=== PATIENT | male | born 1950 | race Caucasian/White ===

== ENCOUNTER → 2017-01-01 | Outpatient (CLI) | payer OTHER ==
[~2017-01-01] MED LIST: ACET-1311 PO; ATV1 PO; CGN5X PO; CHOL2000 PO; DIVA125C PO; ESCI1TAB10 PO; FLM4 PO; HALO2TAB PO; HALO5TAB PO; LORA-741 PO; PRMT10 PO; SENN-91 PO
[2017-01-01 08:57] LABS: BASO % 0.7 %; BASO ABS # 0.03 K/uL (0-0.2); COMPLETE YES; EOS % 4.4 %; HEMATOCRIT 39.5 % (42-52); IG% 0.2 %; LYMPH % 39.1 %; LYMPH ABS # 1.77 K/uL (1.2-3.4); MEAN CORPUSCULAR HEMOGLOBIN 32.5 pg (25-34); MEAN CORPUSCULAR HGB CONC 34.2 g/dl (32-36); MEAN PLATELET VOLUME 11.2 fL (7.4-10.4); MONO % 9.1 %; NEUT % 46.5 %; PLATELET COUNT 204 K/uL (130-400); RED BLOOD COUNT 4.16 M/uL (4.7-6.1); WHITE BLOOD COUNT 4.53 K/uL (4.8-10.8)
[2017-01-01 09:04] LABS: ALT/SGPT 18 U/L (12-78); AST/SGOT 11 U/L (15-37); BLOOD UREA NITROGEN 16 mg/dl (7-18); BUN/CREATININE RATIO 18.1 (10-20); CALCIUM 8.7 mg/dl (8.5-10.1); CARBON DIOXIDE 29 mmol/L (21-32); CHLORIDE 107 mmol/L (98-107); CREATININE 0.89 mg/dl (0.60-1.40); GLUCOSE 81 mg/dl (70-99); MAGNESIUM 2.1 mg/dl (1.8-2.4); POTASSIUM 4.7 mmol/L (3.5-5.1); SODIUM 142 mmol/L (136-145)
[2017-01-01 09:07] LABS: ALB/GLOB RATIO 1.2 (0.9-2); ALKALINE PHOSPHATASE 34 U/L (45-117)
== END | disposition home or self-care (01) ==
LOC: C.LABUPHEI 08:44
PROVIDERS: ATTEND Family Medicine
DX: I10 Essential (primary) hypertension (principal); M62.81 Muscle weakness (generalized); F20.0 Paranoid schizophrenia; Z51.81 Encounter for therapeutic drug level monitoring; Z79.899 Other long term (current) drug therapy

== ENCOUNTER → 2017-04-01 | Outpatient (CLI) | payer OTHER ==
[~2017-04-01] MED LIST changes: +BENZ0.5T2 PO; -CGN5X PO
[2017-04-01 08:58] LABS: ALT/SGPT 17 U/L (12-78); BLOOD UREA NITROGEN 17 mg/dl (7-18); BUN/CREATININE RATIO 18.7 (10-20); CARBON DIOXIDE 32 mmol/L (21-32); CHLORIDE 104 mmol/L (98-107); CHOLESTEROL 199 mg/dl (0-200); CREATININE 0.92 mg/dl (0.60-1.40); GLUCOSE 84 mg/dl (70-99); POTASSIUM 4.4 mmol/L (3.5-5.1); SODIUM 140 mmol/L (136-145); TRIGLYCERIDES 115 mg/dl (0-150); VERY LOW DENSITY LIPOPROT CALC 23 mg/dl
[2017-04-01 09:09] LABS: ALB/GLOB RATIO 1.1 (0.9-2); ALKALINE PHOSPHATASE 41 U/L (45-117); AST/SGOT 8 U/L (15-37); CHOLESTEROL/HDL RATIO 3.8; HDL CHOLESTEROL 52 mg/dl; LDL CHOLESTEROL CALCULATED 124 mg/dl
[2017-04-01 09:28] LABS: CALCIUM 9.4 mg/dl (8.5-10.1)
== END ==
LOC: C.LABUPHEI 08:20
PROVIDERS: ATTEND Nurse Practitioner Family
DX: I10 Essential (primary) hypertension (principal); E78.5 Hyperlipidemia, unspecified; M62.81 Muscle weakness (generalized)

== ENCOUNTER → 2017-04-04 | Outpatient (CLI) | payer OTHER ==
[2017-04-04 06:23] LABS: BASO % 0.7 %; BASO ABS # 0.04 K/uL (0-0.2); COMPLETE YES; EOS % 4.1 %; HEMATOCRIT 37.8 % (42-52); IG% 0.2 %; LYMPH % 31.3 %; LYMPH ABS # 1.77 K/uL (1.2-3.4); MEAN CELL VOLUME 97.9 fL (80-100); MEAN CORPUSCULAR HEMOGLOBIN 33.2 pg (25-34); MEAN CORPUSCULAR HGB CONC 33.9 g/dl (32-36); MEAN PLATELET VOLUME 10.8 fL (7.4-10.4); MONO % 10.1 %; NEUT % 53.6 %; PLATELET COUNT 210 K/uL (130-400); RED BLOOD COUNT 3.86 M/uL (4.7-6.1); WHITE BLOOD COUNT 5.65 K/uL (4.8-10.8)
== END ==
LOC: C.LABUPHEI 09:30
PROVIDERS: ATTEND Family Medicine
DX: I10 Essential (primary) hypertension (principal)

== ENCOUNTER 2017-08-13 15:19 | Inpatient (IN) | payer OTHER ==
[~2017-08-13] VITALS: Ht 162.6 cm; Wt 85.3 kg
[2017-08-13 16:19] VITALS: O2SAT 95
[2017-08-13] MEDS ORDERED: FLM4 PO (16:32)
[2017-08-13] MEDS ORDERED: CHOL2000 PO (16:32)
[2017-08-13] MEDS ORDERED: CGN5X PO (16:32)
[2017-08-13] MEDS ORDERED: HALO2TAB PO (16:32)
[2017-08-13] MEDS ORDERED: ESCI1TAB10 PO (16:32)
[2017-08-13] MEDS ORDERED: PRMT10 PO (16:32)
[2017-08-13] MEDS ORDERED: LORA-741 PO (16:32)
[2017-08-13] MEDS ORDERED: SENN-91 PO (16:32)
[2017-08-13] MEDS ORDERED: ACET-1311 PO (16:32)
[2017-08-13] MEDS ORDERED: DIVA125C PO (16:32)
[2017-08-13 16:51] LABS: BASO % 0.8 %; BASO ABS # 0.04 K/uL (0-0.2); COMPLETE YES; EOS % 4.6 %; HEMATOCRIT 39.3 % (42-52); IG% 0.8 %; LYMPH % 28.3 %; LYMPH ABS # 1.49 K/uL (1.2-3.4); MEAN CELL VOLUME 96.6 fL (80-100); MEAN CORPUSCULAR HEMOGLOBIN 33.7 pg (25-34); MEAN CORPUSCULAR HGB CONC 34.9 g/dl (32-36); MONO % 8.7 %; NEUT % 56.8 %; PLATELET COUNT 201 K/uL (130-400); RED BLOOD COUNT 4.07 M/uL (4.7-6.1); WHITE BLOOD COUNT 5.27 K/uL (4.8-10.8)
[2017-08-13 16:59] LABS: PARTIAL THROMBOPLASTIN RATIO 1.1; PROTHROMBIN TIME (PATIENT) 10.7 SECONDS (9.0-12.0)
[2017-08-13 17:10] LABS: BUN/CREATININE RATIO 21.4 (10-20); CALCIUM 8.9 mg/dl (8.5-10.1); CREATININE 0.92 mg/dl (0.60-1.40); MAGNESIUM 2.2 mg/dl (1.8-2.4); POTASSIUM 4.9 mmol/L (3.5-5.1)
[2017-08-13 17:22] LABS: THYROID STIMULATING HORMONE 1.02 uIu/ml (0.300-4.500)
[2017-08-13 17:44] LABS: URINE APPEARANCE CLEAR (CLEAR); URINE BILIRUBIN NEG (NEG); URINE COLOR YELLOW; URINE NITRITE NEG (NEG); URINE SPECIFIC GRAVITY 1.024 (1.000-1.030); UROBILINOGEN NEG (NEG)
[2017-08-13 17:47] LABS: MANUAL MICROSCOPIC REQUIRED? NO; REVIEW REQ? NO
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
[2017-08-13 19:03] LABS: BENZODIAZEPINE, URINE NEG (NEG); COCAINE,URINE NEG (NEG); PHENCYCLIDINE, URINE NEG (NEG)
[2017-08-13 19:28] LABS: ACETAMINOPHEN < 2 ug/ml (10-30)
[2017-08-13] MEDS ORDERED: BENZTROPINE MESYLATE 0.5 MG TAB PO STA (21:58)
[2017-08-13] MEDS ORDERED: MIDODRINE 10 MG TAB PO STA (21:58)
[2017-08-13] MEDS ORDERED: LORAZEPAM 0.5 MG TAB PO STA (21:58)
[2017-08-13] MEDS ORDERED: DIVALPROEX SODIUM SPRINKLE 125 MG CAP PO STA (21:58)
[2017-08-13] MEDS ORDERED: HALOPERIDOL 1 MG TAB PO STA (21:58)
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
[2017-08-14] MEDS ORDERED: MIDODRINE 10 MG TAB PO STA (04:55)
[2017-08-14] MEDS ORDERED: ESCITALOPRAM OXALATE 20 MG TAB PO STA (04:55)
[2017-08-14] MEDS ORDERED: HALOPERIDOL 1 MG TAB PO STA (04:55)
--- NOTE | 2017-08-14 04:58 | EMERGENCY ROOM VISIT NOTE ---
ED Visit Note First contact with patient: 00:50 This case was signed out to me at change of shift awaiting a bed search. A signed [address] The patient is resting comfortably at this time. 0345: The patient remains asleep at this time. Bed search was suspended by mobile crisis. It will be resumed in the morning. 0430:One of the possible receiving facilities has requested that we perform a chest x-ray. This was completed. The patient has an elevated left hemidiaphragm but otherwise x-ray is unremarkable. 0450: Morning medications were ordered. The case will be signed out to Dr. Velasquez at change of shift.
[2017-08-14] MEDS ORDERED: DIVALPROEX 500 MG EXTENDED RELEASE TAB PO ONE (05:00)
[2017-08-14] MEDS ORDERED: TAMSULOSIN HCL 0.4 MG CAP PO ONE (05:00)
[2017-08-14] MEDS ORDERED: DIVALPROEX SODIUM SPRINKLE 125 MG CAP PO ONE (05:45)
[2017-08-14] MEDS ORDERED: DIVALPROEX 250 MG EXTENDED REL TAB PO ONE (05:45)
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
--- NOTE | 2017-08-14 07:30 | DIAGNOSTIC IMAGING REPORT ---
CHEST ONE VIEW PORTABLE CLINICAL HISTORY: eval for [facility] admission COMPARISON STUDY: No previous studies for comparison. FINDINGS: Lung volumes are normal. There is no consolidation or evidence of pulmonary edema. There is mild elevation of the left hemidiaphragm. Mild cardiomegaly is noted without evidence of pulmonary edema. IMPRESSION: 1. No acute cardiopulmonary findings. 2. Mild cardiomegaly. Electronically signed by: Andre Ocasio M.D. 08/14/2017 7:29 AM Dictated Date/Time: 08/14/2017 7:18 AM
[2017-08-14] MEDS ORDERED: ACETAMINOPHEN 500 MG TAB PO ONE (13:28)
[2017-08-14] MEDS ORDERED: NURSING VERBAL MED ORDER ONE (13:30)
[2017-08-14 13:57] VITALS: O2SAT 96
[2017-08-14] MEDS ORDERED: ACETAMINOPHEN 325 MG TAB PO PRN (15:00)
[2017-08-14] MEDS ORDERED: ALUMINUM/MAGNESIUM SUSP 30 ML UDC PO PRN (15:00)
[2017-08-14] MEDS ORDERED: hydrOXYzine HCL 25 MG TAB PO PRN ×2 (15:00)
[2017-08-14] MEDS ORDERED: HALOPERIDOL LACTATE 5 MG/ML 1 ML VIAL IM PRN (15:00)
[2017-08-14] MEDS ORDERED: MAGNESIUM HYDROXIDE SUSP 30 ML UDC PO PRN (15:00)
[2017-08-14] MEDS ORDERED: BISMUTH SUBSALICYLATE PER ML OMNICELL CHARGE PO PRN (15:00)
[2017-08-14] MEDS ORDERED: SODIUM CHLORIDE 0.65% NA SOLN 45 ML (OCEAN) PRN (15:00)
[2017-08-14 16:17] VITALS: BP 106/73; PULSE 82; TEMP 36.5; Ht 162.6 cm; Wt 85.3 kg
[2017-08-14] MEDS: MIDODRINE 10 MG TAB PO SCH (17:03)
[2017-08-14] MEDS: LORAZEPAM 0.5 MG TAB PO SCH ×2 (17:03→22:20)
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
[2017-08-14] MEDS: BENZTROPINE MESYLATE 0.5 MG TAB PO SCH (22:20)
[2017-08-14] MEDS: HALOPERIDOL 5 MG TAB PO SCH (22:21)
[2017-08-14] MEDS: DIVALPROEX SODIUM SPRINKLE 125 MG CAP PO SCH (22:21)
[2017-08-15 06:52] VITALS: BP_SYST 109; BP_SYST 116; BP_DIAS 72; BP_DIAS 79; PULSE 65; PULSE 92; TEMP 36.8
[2017-08-15 07:51] LABS: BASO % 0.8 %; BASO ABS # 0.04 K/uL (0-0.2); COMPLETE YES; EOS % 2.8 %; HEMATOCRIT 39.7 % (42-52); IG% 0.8 %; LYMPH % 30.2 %; MEAN CELL VOLUME 96.6 fL (80-100); MEAN CORPUSCULAR HEMOGLOBIN 33.3 pg (25-34); MEAN CORPUSCULAR HGB CONC 34.5 g/dl (32-36); MEAN PLATELET VOLUME 9.7 fL (7.4-10.4); NEUT % 55.4 %; PLATELET COUNT 199 K/uL (130-400); RED BLOOD COUNT 4.11 M/uL (4.7-6.1); WHITE BLOOD COUNT 5.29 K/uL (4.8-10.8)
[2017-08-15 08:21] LABS: BUN/CREATININE RATIO 25.2 (10-20); CALCIUM 8.8 mg/dl (8.5-10.1); CREATININE 0.93 mg/dl (0.60-1.40); POTASSIUM 4.4 mmol/L (3.5-5.1)
[2017-08-15] MEDS: MIDODRINE 10 MG TAB PO SCH ×3 (08:28→15:58)
[2017-08-15] MEDS: BENZTROPINE MESYLATE 0.5 MG TAB PO SCH ×2 (08:28→20:56)
[2017-08-15] MEDS: DIVALPROEX SODIUM SPRINKLE 125 MG CAP PO SCH ×3 (08:29→20:57)
[2017-08-15] MEDS: HALOPERIDOL 5 MG TAB PO SCH ×2 (08:29→20:57)
[2017-08-15] MEDS: TAMSULOSIN HCL 0.4 MG CAP PO SCH (08:29)
[2017-08-15] MEDS: LORAZEPAM 0.5 MG TAB PO SCH ×4 (08:29→20:56)
[2017-08-15] MEDS: CHOLECALCIFEROL 1000 INTER.UNIT TAB PO SCH (08:30)
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
[2017-08-15 16:40] VITALS: BP 114/72; PULSE 62
[2017-08-16 06:50] VITALS: BP_SYST 131; BP_DIAS 82; BP_DIAS 91; PULSE 52; PULSE 71; TEMP 36.6
[2017-08-16] MEDS: MIDODRINE 10 MG TAB PO SCH ×3 (07:44→16:08)
[2017-08-16] MEDS: LORAZEPAM 0.5 MG TAB PO SCH ×2 (07:45→13:45)
[2017-08-16] MEDS: BENZTROPINE MESYLATE 0.5 MG TAB PO SCH ×2 (07:45→21:09)
[2017-08-16] MEDS: TAMSULOSIN HCL 0.4 MG CAP PO SCH (07:46)
[2017-08-16] MEDS: HALOPERIDOL 5 MG TAB PO SCH ×2 (07:46→21:09)
[2017-08-16] MEDS: DIVALPROEX SODIUM SPRINKLE 125 MG CAP PO SCH ×3 (07:46→21:09)
[2017-08-16] MEDS: CHOLECALCIFEROL 1000 INTER.UNIT TAB PO SCH (07:46)
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
[2017-08-16 11:53] VITALS: BP 138/91; PULSE 61
[2017-08-16] MEDS: LORAZEPAM 1 MG TAB PO SCH (21:09)
[2017-08-17 07:05] VITALS: BP_SYST 124; BP_SYST 128; BP_DIAS 86; BP_DIAS 91; PULSE 103; PULSE 79; TEMP 36.8
[2017-08-17] MEDS: LORAZEPAM 0.5 MG TAB PO SCH ×2 (09:00→14:14)
[2017-08-17] MEDS: BENZTROPINE MESYLATE 0.5 MG TAB PO SCH ×2 (09:00→20:40)
[2017-08-17] MEDS: MIDODRINE 10 MG TAB PO SCH ×3 (09:00→15:53)
[2017-08-17] MEDS: CHOLECALCIFEROL 1000 INTER.UNIT TAB PO SCH (09:01)
[2017-08-17] MEDS: HALOPERIDOL 5 MG TAB PO SCH ×2 (09:01→20:41)
[2017-08-17] MEDS: TAMSULOSIN HCL 0.4 MG CAP PO SCH (09:01)
[2017-08-17] MEDS: DIVALPROEX SODIUM SPRINKLE 125 MG CAP PO SCH ×3 (09:02→20:41)
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
[2017-08-17] MEDS: LORAZEPAM 1 MG TAB PO SCH (20:40)
[2017-08-18] MEDS: LORAZEPAM 0.5 MG TAB PO SCH ×2 (06:37→13:34)
[2017-08-18] MEDS: DIVALPROEX SODIUM SPRINKLE 125 MG CAP PO SCH ×2 (06:38→13:34)
[2017-08-18 06:39] VITALS: BP_SYST 110; BP_SYST 114; BP_DIAS 74; BP_DIAS 78; PULSE 60; PULSE 87; TEMP 36.8
[2017-08-18] MEDS: MIDODRINE 10 MG TAB PO SCH ×2 (07:47→12:36)
[2017-08-18] MEDS: BENZTROPINE MESYLATE 0.5 MG TAB PO SCH (08:51)
[2017-08-18] MEDS: TAMSULOSIN HCL 0.4 MG CAP PO SCH (08:51)
[2017-08-18] MEDS: HALOPERIDOL 5 MG TAB PO SCH (08:51)
[2017-08-18] MEDS: CHOLECALCIFEROL 1000 INTER.UNIT TAB PO SCH (08:51)
[2017-08-18] MEDS ORDERED: HALO5TAB PO (09:00)
[2017-08-18] MEDS ORDERED: DIVA125C PO (09:00)
[2017-08-18] MEDS ORDERED: ATV1 PO (09:00)
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
== END 2017-08-18 13:47 | DRG 885 ==
LOC: EDBD 15:19 → C.EDA 15:22 → C.MHU 08-14 14:40
PROVIDERS: ADMIT Psychiatry & Neurology Psychiatry; ATTEND Psychiatry & Neurology Psychiatry
DX: F29 Unspecified psychosis not due to a substance or known physiological condition (principal); Q79.1 Other congenital malformations of diaphragm; F20.0 Paranoid schizophrenia; R45.6 Violent behavior; F52.8 Other sexual dysfunction not due to a substance or known physiological condition; I10 Essential (primary) hypertension; N40.0 Benign prostatic hyperplasia without lower urinary tract symptoms; Z91.5 Personal history of self-harm; Z87.820 Personal history of traumatic brain injury; Z79.899 Other long term (current) drug therapy

== ENCOUNTER → 2017-10-05 | Outpatient (CLI) | payer OTHER ==
[~2017-10-05] MED LIST changes: -ESCI1TAB10 PO; -HALO2TAB PO; -LORA-741 PO
[2017-10-05 09:11] LABS: BASO ABS # 0.05 K/uL (0-0.2); COMPLETE YES; EOS % 2.4 %; IG% 0.4 %; LYMPH % 33.2 %; LYMPH ABS # 1.64 K/uL (1.2-3.4); MEAN CELL VOLUME 97.2 fL (80-100); MEAN CORPUSCULAR HEMOGLOBIN 33.1 pg (25-34); MEAN PLATELET VOLUME 11.4 fL (7.4-10.4); MONO % 10.9 %; NEUT % 52.1 %; PLATELET COUNT 202 K/uL (130-400); RED BLOOD COUNT 4.32 M/uL (4.7-6.1); WHITE BLOOD COUNT 4.94 K/uL (4.8-10.8)
[2017-10-05 09:24] LABS: ALT/SGPT 40 U/L (12-78); BLOOD UREA NITROGEN 17 mg/dl (7-18); BUN/CREATININE RATIO 14.5 (10-20); CALCIUM 9.3 mg/dl (8.5-10.1); CARBON DIOXIDE 25 mmol/L (21-32); CHLORIDE 107 mmol/L (98-107); CREATININE 1.19 mg/dl (0.60-1.40); GLUCOSE 113 mg/dl (70-99); MAGNESIUM 2.1 mg/dl (1.8-2.4); POTASSIUM 4.5 mmol/L (3.5-5.1); SODIUM 140 mmol/L (136-145)
[2017-10-05 09:27] LABS: ALKALINE PHOSPHATASE 42 U/L (45-117); AST/SGOT 16 U/L (15-37)
== END ==
LOC: C.LABUPHEI 08:40
PROVIDERS: ATTEND Nurse Practitioner Family
DX: I10 Essential (primary) hypertension (principal); F33.8 Other recurrent depressive disorders; F03.91 Unspecified dementia, unspecified severity, with behavioral disturbance

== ENCOUNTER → 2017-10-19 | Outpatient (CLI) | payer OTHER | LOC: C.LABUPHEI 08:53 | PROVIDERS: ATTEND Nurse Practitioner Family | DX: F03.91 Unspecified dementia, unspecified severity, with behavioral disturbance (principal) ==

== ENCOUNTER → 2018-01-19 | Outpatient (CLI) | payer OTHER | LOC: C.LABUPHEI 09:14 | PROVIDERS: ATTEND Nurse Practitioner Family | DX: F20.0 Paranoid schizophrenia (principal) ==

== ENCOUNTER → 2018-01-29 | Outpatient (CLI) | payer OTHER ==
[2018-01-29 08:30] LABS: BASO % 0.8 %; BASO ABS # 0.04 K/uL (0-0.2); EOS % 3.1 %; EOS ABS # 0.16 K/uL (0-0.5); HEMATOCRIT 37.9 % (42-52); HEMOGLOBIN 12.9 g/dL (14.0-18.0); IG# 0.02 K/uL (0.00-0.02); LYMPH % 32.9 %; LYMPH ABS # 1.68 K/uL (1.2-3.4); MEAN CELL VOLUME 97.2 fL (80-100); MEAN CORPUSCULAR HEMOGLOBIN 33.1 pg (25-34); MEAN PLATELET VOLUME 10.8 fL (7.4-10.4); MONO % 11.5 %; MONO ABS # 0.59 K/uL (0.11-0.59); NEUT % 51.3 %; NEUT ABS # 2.62 K/uL (1.4-6.5); PLATELET COUNT 208 K/uL (130-400); RED CELL DISTRIBUTION WIDTH CV 13.6 % (11.5-14.5); RED CELL DISTRIBUTION WIDTH SD 48.2 fL (36.4-46.3); WHITE BLOOD COUNT 5.11 K/uL (4.8-10.8)
[2018-01-29 08:43] LABS: ALBUMIN 3.2 gm/dl (3.4-5.0); ALT/SGPT 17 U/L (12-78); BLOOD UREA NITROGEN 13 mg/dl (7-18); CALCIUM 8.7 mg/dl (8.5-10.1); CARBON DIOXIDE 27 mmol/L (21-32); CREATININE 0.75 mg/dl (0.60-1.40); GLUCOSE 85 mg/dl (70-99); POTASSIUM 4.2 mmol/L (3.5-5.1); SODIUM 141 mmol/L (136-145)
[2018-01-29 08:53] LABS: ALKALINE PHOSPHATASE 35 U/L (45-117); AST/SGOT 6 U/L (15-37); TOTAL PROTEIN 6.1 gm/dl (6.4-8.2)
== END ==
LOC: C.LABUPHEI 08:02
PROVIDERS: ATTEND Nurse Practitioner Family
DX: I10 Essential (primary) hypertension (principal); R63.4 Abnormal weight loss

== ENCOUNTER → 2018-02-10 | Outpatient (CLI) | payer OTHER ==
[2018-02-10 16:02] LABS: INFLUENZA B ANTIGEN Neg for Influ B (NEG)
--- NOTE | 2018-02-17 14:11 | CODING QUERY NO DIAGNOSIS ---
: 1950 TREATMENT RENDERED WITHOUT A DIAGNOSIS To promote full compliance with coding requirements relating to patient care, physician participation is requested in all cases of sales development director uncertainty. Please assist us with providing a diagnosis/symptom for the test(s) below: A diagnosis/symptom was not documented on your Order. A valid diagnosis/symptom is required to bill all insurances. Please remember that we are unable to code a diagnosis of rule out, probable, possible, questionable, or suspected. Tests that require a diagnosis: DOS: 02/10/18 * INFLUENZA VIRUS A OR B ANTIGEN DIAGNOSIS: Provider Signature: Date: Thank you Diana Torres Health Information Management Once completed, please kindly fax back to [phone] For questions please call [phone]
== END ==
LOC: C.LABUPHEI 15:06
PROVIDERS: ATTEND Nurse Practitioner Family
DX: J06.9 Acute upper respiratory infection, unspecified (principal); R50.9 Fever, unspecified

== ENCOUNTER → 2018-02-12 | Outpatient (CLI) | payer OTHER ==
[2018-02-12 08:38] LABS: BASO % 0.6 %; BASO ABS # 0.03 K/uL (0-0.2); EOS % 0.2 %; EOS ABS # 0.01 K/uL (0-0.5); HEMATOCRIT 40.8 % (42-52); IG# 0.02 K/uL (0.00-0.02); LYMPH % 19.2 %; LYMPH ABS # 0.92 K/uL (1.2-3.4); MEAN CORPUSCULAR HEMOGLOBIN 32.9 pg (25-34); MEAN CORPUSCULAR HGB CONC 34.3 g/dl (32-36); MEAN PLATELET VOLUME 10.9 fL (7.4-10.4); MONO % 21.3 %; MONO ABS # 1.02 K/uL (0.11-0.59); NEUT % 58.3 %; NEUT ABS # 2.78 K/uL (1.4-6.5); PLATELET COUNT 192 K/uL (130-400); RED CELL DISTRIBUTION WIDTH CV 14.2 % (11.5-14.5); RED CELL DISTRIBUTION WIDTH SD 50.2 fL (36.4-46.3); WHITE BLOOD COUNT 4.78 K/uL (4.8-10.8)
[2018-02-12 08:48] LABS: ALBUMIN 3.2 gm/dl (3.4-5.0); ALT/SGPT 25 U/L (12-78); AST/SGOT 18 U/L (15-37); BLOOD UREA NITROGEN 14 mg/dl (7-18); CALCIUM 8.5 mg/dl (8.5-10.1); CARBON DIOXIDE 26 mmol/L (21-32); GLUCOSE 90 mg/dl (70-99); POTASSIUM 4.1 mmol/L (3.5-5.1); SODIUM 138 mmol/L (136-145)
[2018-02-12 08:50] LABS: ALKALINE PHOSPHATASE 41 U/L (45-117); TOTAL PROTEIN 6.8 gm/dl (6.4-8.2)
== END | disposition home or self-care (01) ==
LOC: C.LABUPHEI 08:29
PROVIDERS: ATTEND Nurse Practitioner Family
DX: J06.9 Acute upper respiratory infection, unspecified (principal)

== ENCOUNTER → 2018-04-02 | Outpatient (CLI) | payer OTHER ==
[2018-04-02 10:08] LABS: BASO % 0.8 %; BASO ABS # 0.04 K/uL (0-0.2); EOS % 1.9 %; HEMATOCRIT 38.6 % (42-52); HEMOGLOBIN 13.2 g/dL (14.0-18.0); IG# 0.02 K/uL (0.00-0.02); LYMPH % 34.1 %; LYMPH ABS # 1.79 K/uL (1.2-3.4); MEAN CELL VOLUME 95.8 fL (80-100); MEAN CORPUSCULAR HEMOGLOBIN 32.8 pg (25-34); MEAN CORPUSCULAR HGB CONC 34.2 g/dl (32-36); MEAN PLATELET VOLUME 10.8 fL (7.4-10.4); MONO % 12.6 %; MONO ABS # 0.66 K/uL (0.11-0.59); NEUT % 50.2 %; NEUT ABS # 2.64 K/uL (1.4-6.5); PLATELET COUNT 231 K/uL (130-400); RED CELL DISTRIBUTION WIDTH CV 13.9 % (11.5-14.5); RED CELL DISTRIBUTION WIDTH SD 49.1 fL (36.4-46.3); WHITE BLOOD COUNT 5.25 K/uL (4.8-10.8)
[2018-04-02 10:16] LABS: ALBUMIN 3.4 gm/dl (3.4-5.0); ALT/SGPT 17 U/L (12-78); AST/SGOT 8 U/L (15-37); BLOOD UREA NITROGEN 14 mg/dl (7-18); CALCIUM 8.9 mg/dl (8.5-10.1); CARBON DIOXIDE 29 mmol/L (21-32); CREATININE 0.89 mg/dl (0.60-1.40); GLUCOSE 84 mg/dl (70-99); POTASSIUM 4.3 mmol/L (3.5-5.1); SODIUM 140 mmol/L (136-145)
[2018-04-02 10:19] LABS: ALKALINE PHOSPHATASE 43 U/L (45-117); TOTAL PROTEIN 6.4 gm/dl (6.4-8.2)
== END ==
LOC: C.LABUPHEI 08:42
PROVIDERS: ATTEND Nurse Practitioner Family
DX: I10 Essential (primary) hypertension (principal); F20.0 Paranoid schizophrenia

== ENCOUNTER → 2018-04-19 | Outpatient (CLI) | payer OTHER | LOC: C.LABUPHEI 08:08 | PROVIDERS: ATTEND Nurse Practitioner Family | DX: F33.8 Other recurrent depressive disorders (principal) ==

== ENCOUNTER → 2018-07-19 | Outpatient (CLI) | payer OTHER ==
[~2018-07-19] MED LIST changes: -DIVA125C PO; +DIVA125C2 PO
== END ==
LOC: C.LABUPHEI 08:33
PROVIDERS: ATTEND Nurse Practitioner Family
DX: F03.91 Unspecified dementia, unspecified severity, with behavioral disturbance (principal); E55.9 Vitamin D deficiency, unspecified

== ENCOUNTER 2020-07-17 13:16 | Inpatient (IN) ==
[2020-07-17] MEDS ORDERED: MoRPHine SULFATE 4 MG/ML 1 ML CARP\\VIAL IV PRN (13:41)
[2020-07-17] MEDS ORDERED: MoRPHine SULFATE 2 MG/ML CARP IV PRN (13:41)
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
[2020-07-17 13:59] LABS: Basophils # (auto) 0.03 K/uL (0-0.2); Basophils % (auto) 0.2 %; Eosinophils # (auto) 0.04 K/uL (0-0.5); Eosinophils % (auto) 0.3 %; Hematocrit (blood only) 36.1 % (42-52); Hemoglobin 12.3 g/dL (14.0-18.0); Immature Granulocytes # (auto) 0.02 K/uL (0.00-0.02); Immature Granulocytes % (auto) 0.2 %; Lymphocytes # (auto) 1.38 K/uL (1.2-3.4); Lymphocytes % (auto) 11.4 %; Mean Corpuscular Hemoglobin 32.9 pg (25-34); Mean Corpuscular Hgb Conc 34.1 g/dL (32-36); Mean Corpuscular Volume 96.5 fL (80-100); Mean Platelet Volume 10.7 fL (7.4-10.4); Monocytes # (auto) 1.68 K/uL (0.11-0.59); Monocytes % (auto) 13.9 %; Neutrophils # (auto) 8.95 K/uL (1.4-6.5); Platelet Count 250 K/uL (130-400); RDW Coefficient of Variation 14.3 % (11.5-14.5); RDW Standard Deviation 50.8 fL (36.4-46.3); Red Blood Count 3.74 M/uL (4.7-6.1)
--- NOTE | 2020-07-17 14:06 | XRay Report ---
SINGLE VIEW CHEST CLINICAL HISTORY: Hip fracture. FINDINGS: An AP, portable, semierect chest radiograph is compared to study dated 03/19/2020. The exami [place] is degraded by portable technique and patient rotation. The cardiomediastinal silhouette is u nremarkable noting atherosclerotic calcification of the thoracic aorta. The lungs and pleural spaces are clear. No pneumothorax is seen. The skeletal structures are osteopenic. The bony thorax is grossl y intact. IMPRESSION: No active disease in the chest. ACT 112: Negative or not required by law. Electronically signed by: Emanuel Sullivan M.D. 07/17/2020 2:05 PM
[2020-07-17 14:10] LABS: Partial Thromboplastin Time 26.6 Seconds (21.0-31.0); Prothrombin Time 10.8 Seconds (9.0-12.0)
[2020-07-17] MEDS: LACTATED RINGER'S 1,000 ML IV SCH ×2 (14:19→19:50)
[2020-07-17 14:37] LABS: BUN Creatinine Ratio 18.8 (10-20); Blood Urea Nitrogen 18 mg/dl (7-18); Calcium 9.6 mg/dl (8.5-10.1); Carbon Dioxide 29 mmol/L (21-32); Chloride 107 mmol/L (98-107); Est GFR (African American) 96.8; Est GFR (Non-African American) 83.6; Glucose 110 mg/dl (70-99); Potassium 4.5 mmol/L (3.5-5.1); Sodium 142 mmol/L (136-145)
[2020-07-17 14:46] LABS: Appearance Urine Clear (Clear); Bilirubin Urine Negative (Negative); Blood Urine Negative (Negative); Color Urine Yellow; Glucose Urine UA Negative (Negative); Ketones Urine 1+ (Negative); Leukocyte Esterase Urine Negative (Negative); Nitrite Urine Negative (Negative); Protein Urine Negative (Negative); Specific Gravity Urine 1.029 (1.000-1.030); Urobilinogen Urine Negative (Negative)
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
--- NOTE | 2020-07-17 15:30 | XRay Report ---
RIGHT FEMUR 3 VIEWS CLINICAL HISTORY: Right femoral fracture. FINDINGS: AP, frog-leg, and crosstable lateral views of the right femur are correlated with femoral C T performed the same day 07/17/2020. The skeletal structures are osteopenic. Again seen is an impacted and comminuted intertrochanteric fracture of the right femur. There are small bone fragments as well as medial distraction of the lesser trochanter. Overlying soft tissue edema is noted. There is mild degenerative narrowing of the right hip joint. The femoral head remains within the acetabulum. The di stal femur is intact. Degenerative change is noted in the partially imaged right knee. The visualized right hemipelvis is preserved. IMPRESSION: There is unchanged appearance of an impacted and comminuted intertrochanteric fracture of the right femur as compared to today's CT scan. Electronically signed by: Emanuel Sullivan M.D. 07/17/2020 3:29 PM
--- NOTE | 2020-07-17 15:52 | Electrocardiogram Report ---
Test Reason : Blood Pressure : / mmHG Vent. Rate : 097 BPM Atrial Rate : 097 BPM P-R Int : 134 ms QRS Dur : 126 ms QT Int : 370 ms P-R-T Axes : 060 064 -07 degrees QTc Int : 469 ms Normal sinus rhythm Possible Left atrial enlargement Right bundle branch block T wave abnormality, consider inferior ischemia Abnormal ECG When compared with ECG of 19-MAR-2020 15:38, Premature ventricular complexes are no longer Present Confirmed by Gurvinder Cardoza ([id number]) on 07/17/2020 3:52:00 PM Referred By: [facility] Confirmed By:Gurvinder Cardoza
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
[2020-07-17] MEDS ORDERED: ACETAMINOPHEN 325 MG TAB PO PRN (19:56)
[2020-07-17] MEDS ORDERED: bisacodyL 10 MG SUPP PR PRN (19:56)
[2020-07-17] MEDS ORDERED: ONDANSETRON INJ 2 MG/ML 2 ML VIAL IV PRN (19:56)
[2020-07-17] MEDS ORDERED: NALOXONE HCL 0.4 MG/1 ML VIAL/CARP IV PRN (19:56)
[2020-07-17] MEDS ORDERED: MAGNESIUM HYDROXIDE SUSP 30 ML UDC PO PRN (19:56)
[2020-07-17] MEDS ORDERED: DOCUSATE SODIUM/SENNA 50/8.6MG TAB PO SCH (21:00)
[2020-07-17] MEDS: LORazepam 0.5 MG TAB PO SCH (21:36)
[2020-07-17] MEDS: ACETAMINOPHEN 325 MG TAB PO SCH (21:36)
[2020-07-17] MEDS: DOCUSATE SODIUM/SENNA 50/8.6MG TAB PO SCH (21:37)
[2020-07-17] MEDS: BENZTROPINE MESYLATE 0.5 MG TAB PO SCH (21:37)
[2020-07-17] MEDS: haloperidoL 5 MG TAB PO SCH (21:39)
[2020-07-17] MEDS: DIVALPROEX SODIUM SPRINKLE 125 MG CAP PO SCH (21:39)
[2020-07-18] MEDS: LACTATED RINGER'S 1,000 ML IV SCH ×4 (02:49→23:25)
[2020-07-18 06:15] LABS: Basophils # (auto) 0.03 K/uL (0-0.2); Basophils % (auto) 0.3 %; Eosinophils # (auto) 0.12 K/uL (0-0.5); Eosinophils % (auto) 1.2 %; Hematocrit (blood only) 29.4 % (42-52); Hemoglobin 9.9 g/dL (14.0-18.0); Immature Granulocytes # (auto) 0.02 K/uL (0.00-0.02); Immature Granulocytes % (auto) 0.2 %; Lymphocytes # (auto) 1.47 K/uL (1.2-3.4); Lymphocytes % (auto) 14.8 %; Mean Corpuscular Hemoglobin 32.7 pg (25-34); Mean Corpuscular Hgb Conc 33.7 g/dL (32-36); Mean Platelet Volume 10.8 fL (7.4-10.4); Monocytes # (auto) 1.34 K/uL (0.11-0.59); Monocytes % (auto) 13.5 %; Neutrophils # (auto) 6.95 K/uL (1.4-6.5); Platelet Count 213 K/uL (130-400); RDW Coefficient of Variation 14.3 % (11.5-14.5); Red Blood Count 3.03 M/uL (4.7-6.1); White Blood Count 9.93 K/uL (4.8-10.8)
[2020-07-18 06:51] LABS: BUN Creatinine Ratio 18.7 (10-20); Creatinine Clr Calc Pharmacy 93.7 ml/min; Est GFR (African American) 110.6; Est GFR (Non-African American) 95.4; Potassium 4.5 mmol/L (3.5-5.1)
[2020-07-18 07:03] LABS: Calcium 8.8 mg/dl (8.5-10.1)
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
[2020-07-18] MEDS: haloperidoL 5 MG TAB PO SCH ×2 (07:50→20:48)
[2020-07-18] MEDS: DIVALPROEX SODIUM SPRINKLE 125 MG CAP PO SCH ×3 (07:51→20:47)
[2020-07-18] MEDS: MIDODRINE HCL 2.5 MG TAB PO SCH ×3 (07:51→16:57)
[2020-07-18] MEDS: BENZTROPINE MESYLATE 0.5 MG TAB PO SCH ×2 (07:52→20:48)
[2020-07-18] MEDS: LORazepam 0.5 MG TAB PO SCH ×3 (07:53→20:47)
[2020-07-18] MEDS: DOCUSATE SODIUM/SENNA 50/8.6MG TAB PO SCH ×2 (07:58→20:48)
[2020-07-18] MEDS: CHOLECALCIFEROL 1,000 UNITS 25 MCG TAB PO SCH (07:59)
[2020-07-18] MEDS ORDERED: MIDODRINE HCL 10 MG TAB PO SCH (08:00)
[2020-07-18] MEDS ORDERED: BUPIVACAINE 0.5 % 5 MG/1 ML PF 10ML VIAL ONE (08:01)
[2020-07-18] MEDS ORDERED: MIDAZOLAM HCL 1 MG/ML 2ML VIAL ONE (08:11)
[2020-07-18] MEDS ORDERED: ONDANSETRON INJ 2 MG/ML 2 ML VIAL ONE (08:11)
[2020-07-18] MEDS ORDERED: LIDOCAINE HCL 2% 2 ML VIAL/AMP(20MG/ML) INFIL ONE (08:11)
[2020-07-18] MEDS ORDERED: fentaNYL citrate 100 MCG/2 ML VIAL ONE (08:11)
[2020-07-18] MEDS ORDERED: DEXAMETHASONE SOD INJ 4 MG/ML VIAL ONE (08:11)
[2020-07-18] MEDS ORDERED: PROPOFOL IV EMULSION 10 MG/ML 20 ML VIAL IV ONE (08:11)
[2020-07-18] MEDS ORDERED: LABETALOL HCL IV 5 MG/ML 20ML IV PRN (08:45)
[2020-07-18] MEDS ORDERED: ePHEDrine sulfate 50 MG/ML AMP IV PRN (08:45)
[2020-07-18] MEDS ORDERED: PHENYLEPHRINE 100MCG/ML 5ML SYR IV PRN (08:45)
[2020-07-18] MEDS ORDERED: fentaNYL citrate 100 MCG/2 ML VIAL IV PRN (08:45)
[2020-07-18] MEDS ORDERED: MEPERIDINE HCL 25 MG/ML CARP/VIAL IV PRN (08:45)
[2020-07-18] MEDS ORDERED: ATROPINE SULFATE 0.1 MG/ML 10ML SYR IV PRN (08:45)
[2020-07-18] MEDS ORDERED: HYDROmorphone INJ 1 MG/ML SYRINGE IV PRN (08:45)
[2020-07-18] MEDS ORDERED: ONDANSETRON INJ 2 MG/ML 2 ML VIAL IV PRN (08:45)
--- NOTE | 2020-07-18 10:19 | History & Physical Bridge Note ---
Date of Service July 18, 2020 History & Physical Bridge Note I have examined the patient, reviewed the History & Physical and in the interval since the performance of the History & Physical I have noted the following changes of clinical significance: no changes noted
[2020-07-18] MEDS ORDERED: CEFAZOLIN 2,000 MG/15 ML IV PUSH IV ONE (10:29)
[2020-07-18] MEDS ORDERED: PHENYLEPHRINE HCL 10 MG/ML VIAL ONE (11:07)
[2020-07-18] MEDS ORDERED: PHENYLEPHRINE 100MCG/ML 5ML SYR ONE (11:07)
--- NOTE | 2020-07-18 12:37 | Fluoroscopy Report ---
FL hip RT 2-3V CLINICAL HISTORY: Right trochanteric nail. COMPARISON STUDY: CT of the right hip and right femur radiographs July 17, 2020. FLUOROSCOPY TIME: 2 minutes and 52 seconds. FLUOROSCOPIC IMAGES: 4 FINDINGS: Fluoroscopy was provided for internal fixation of the intertrochanteric fracture of the rig ht femur with IM nail. Hardware is intact. Fracture alignment has improved. There are no unexpected r adiopaque foreign bodies. Distal screw is present. IMPRESSION: Fluoroscopy provided for internal fixation of the intertrochanteric fracture of the righ t femur. ACT 112: Negative or not required by law. Electronically signed by: Andre Ocasio M.D. 07/18/2020 12:36 PM
--- NOTE | 2020-07-18 12:39 | Post Operative Brief Note ---
Immediate Post Op Note v1 Date of Surgery July 18, 2020 Pre & Post Diagnosis Operation Date: 07/18/20 09:40 Pre-Op Diagnosis: Closed fracture of right hip, intertrochanteric Post-Op Diagnosis: Closed fracture of right hip, intertrochanteric I identified the patient and participated in the time-out.: Yes Procedure Operation Date: 07/18/20 09:40 Actual Procedures p Right Hip Trochanteric Fixation Nail(Right) - Dakota Dalal MD Surgeon Dakota Dalal MD Men'S Designer None Estimated Blood Loss 50 Findings Consistent with Post-Op Diagnosis Specimens None Anesthesia Type Spinal MAC Complications none Disposition Accompanied Patient To Recovery: No Disposition: Recovery Room Overlapping Procedure I was immediately available: during the entire case.
--- NOTE | 2020-07-18 12:48 | Operative Report ---
Post Operative Report Pre & Post Diagnosis Operation Date: 07/18/20 09:40 Pre-Op Diagnosis: Closed intertrochanteric fracture of right hip Post-Op Diagnosis: Closed intertrochanteric fracture of right hip I identified the patient and participated in the time-out.: Yes Procedure Operation Date: 07/18/20 09:40 Actual Procedures p Right Hip Trochanteric Fixation Nail(Right) - Dakota Dalal MD Surgeon Dakota Dalal MD Art Professor None Estimated Blood Loss 50 Findings Consistent with Post-Op Diagnosis Specimens None Drains None Anesthesia Type Spinal MAC Complications none Disposition Accompanied Patient To Recovery: No Disposition: Recovery Room Indications 69-year-old male [facility] had unwitnessed fall fracture right hip with intertrochanteric hip fracture moderate compression and displacement 3 to 4 part fracture. Patient also fall risk. Patient had minimal health issues due to brain injury. Description of Procedure Patient was taken to the operating room and anesthetized under spinal with sedation anesthesia. The patient was positioned on a fracture table and brought down onto the perineal post the foot of the operative extremity was placed into boot traction and the well leg was placed into a well padded leg holding device in flexion and maximal internal rotation. The upper arms were crossed over the chest and padded and taped into position. The fracture was reduced by first keeping the hip in the abducted position and then placing longitudinal traction followed by internal rotation followed by adduction. Fluoroscopic views documented the reduction to be satisfactory. The right hip down to below the knee was prepped and draped with ChloraPrep in the usual sterile fashion. Sterile drapes were applied from the hip to below the knee. A longitudinal incision was made at the tip of the greater trochanter extending proximally along the abductor tendon area. The subcutaneous tissues were incised down to the fascia and subcutaneous bleeders were cauterized. The fascia was divided longitudinally and a [place] elevator was used to split the medius and the greater trochanter was palpated. The entrance point was identified with fluoroscopy. The guidewire was advanced under fluoroscopic guidance. The drill for the proximal opening was utilized. The beaded guidewire was passed through that drill hole down into the shaft of the femur to the level of the proximal patella. The length of the rosemary was measured and a 380 millimeter length rosemary by 11 mm mm width rosemary was chosen. We used the Synthes long trochanteric femoral nail with spiral blade fixation including distal locking screws. We reamed up to a 12.5 mm reamer down to the canal to make sure that the rosemary would pass without difficulty. The Synthes 130 angle 11 mm x 380 mm length titanium rosemary was advanced over the guidewire to fluoroscopic guidance until seated at the appropriate depth. The guidewire was advanced to the femoral neck and head under fluoroscopic guidance in the appropriate position and length of the blade measured at 100 millimeter. After appropriate drilling for the spiral blade to spiral blade was then advanced until fully seated and the proximal locking screw was tightened. Fracture was compressed. it Was noted that patient had very good bone quality in the femoral head. then the hip was abducted slightly so we could bring in the fluoroscopy and get perfect circles for placement of the distal locking screws. The locking screw was placed utilizing a radiolucent guide drill. We used one 5 x 56 mm locking screw. AP and lateral views were identified to sure the screw was in appropriate position and assessed the reduction proximally. After copious irrigation the fascia was closed with interrupted [id number] #1 Vicryl sutures the subcutaneous tissues were closed with 2-0 Vicryl sutures and the skin was closed with jamee sterile dressings were applied and the patient tolerated procedure well. Thank you. I attest to the content of the Intraoperative Record and any orders documented therein. Any exceptions are noted below.
--- NOTE | 2020-07-18 13:12 | Anesthesiology Progress Note ---
Date of Service July 18, 2020 Anesthesia Post Procedure Vital Signs Vital Signs: Temp Pulse Pulse Pulse Resp BP BP 07/18/20 13:00 88 15 93/58 L 07/18/20 12:50 84 14 84/60 L 07/18/20 12:42 36.3 C L 75 16 121/78 07/18/20 08:20 37.7 C H 98 H 18 102/67 07/18/20 07:33 92 H 07/18/20 07:20 36.8 C 77 18 132/88 07/18/20 03:12 36.8 C 95 H 17 121/80 07/18/20 01:46 121 H 07/17/20 23:22 36.7 C 114 H 18 132/80 07/17/20 20:30 100 H 07/17/20 20:00 36.6 C 112 H 18 138/84 07/17/20 19:28 99 H 16 131/91 07/17/20 18:41 105 H 18 101/79 07/17/20 17:30 115 H 18 128/90 07/17/20 16:05 104 H 18 134/105 H 07/17/20 13:27 36.4 C L 99 H 18 113/82 Pulse Ox 07/18/20 13:00 99 07/18/20 12:50 100 07/18/20 12:42 100 07/18/20 08:20 98 07/18/20 07:33 07/18/20 07:20 91 07/18/20 03:12 94 07/18/20 01:46 07/17/20 23:22 95 07/17/20 20:30 07/17/20 20:00 93 07/17/20 19:28 95 07/17/20 18:41 95 07/17/20 17:30 95 07/17/20 16:05 96 07/17/20 13:27 96 Transfer of Care Handoff Completed per policy Notes Mental Status: alert / awake / arousable Patient Amnestic to Procedure: Yes Nausea / Vomiting: adequately controlled Pain: adequately controlled Airway Patency, RR, SpO2: stable & adequate BP & HR: stable & adequate Hydration State: stable & adequate Neuraxial Anesthesia: was administered and sensory block is resolving Anesthetic Complications: no major complications apparent and Pt Satisfied with anesthetic care Notes: The patient is awake and comfortable. He is able to move his feet on command.
[2020-07-18] MEDS ORDERED: NALOXONE HCL 0.4 MG/1 ML VIAL/CARP IV PRN (14:14)
[2020-07-18] MEDS ORDERED: CEFAZOLIN 1000MG 1,000 MG/7.5 ML SYR IV ONE (18:30)
[2020-07-18] MEDS: ACETAMINOPHEN 325 MG TAB PO SCH (20:47)
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
[2020-07-18] MEDS: HYDROmorphone INJ 0.5 MG/0.5 ML SYR IV PRN (21:12)
[2020-07-19] MEDS: LACTATED RINGER'S 1,000 ML IV SCH ×3 (05:11→19:05)
[2020-07-19 07:22] LABS: Basophils # (auto) 0.03 K/uL (0-0.2); Basophils % (auto) 0.4 %; Eosinophils # (auto) 0.22 K/uL (0-0.5); Eosinophils % (auto) 2.7 %; Hematocrit (blood only) 25.4 % (42-52); Hemoglobin 8.6 g/dL (14.0-18.0); Immature Granulocytes # (auto) 0.02 K/uL (0.00-0.02); Immature Granulocytes % (auto) 0.2 %; Lymphocytes # (auto) 1.36 K/uL (1.2-3.4); Lymphocytes % (auto) 16.5 %; Mean Corpuscular Hemoglobin 33.6 pg (25-34); Mean Corpuscular Hgb Conc 33.9 g/dL (32-36); Mean Corpuscular Volume 99.2 fL (80-100); Mean Platelet Volume 10.4 fL (7.4-10.4); Monocytes # (auto) 1.47 K/uL (0.11-0.59); Monocytes % (auto) 17.9 %; Neutrophils # (auto) 5.13 K/uL (1.4-6.5); Neutrophils % (auto) 62.3 %; Platelet Count 206 K/uL (130-400); RDW Coefficient of Variation 13.9 % (11.5-14.5); Red Blood Count 2.56 M/uL (4.7-6.1); White Blood Count 8.23 K/uL (4.8-10.8)
[2020-07-19 07:52] LABS: BUN Creatinine Ratio 19.1 (10-20); Calcium 8.4 mg/dl (8.5-10.1); Creatinine Clr Calc Pharmacy 106.7 ml/min; Est GFR (African American) 116.7; Est GFR (Non-African American) 100.7; Potassium 4.3 mmol/L (3.5-5.1)
[2020-07-19] MEDS: MIDODRINE HCL 2.5 MG TAB PO SCH ×3 (08:19→15:07)
[2020-07-19] MEDS: haloperidoL 5 MG TAB PO SCH ×2 (08:19→21:41)
[2020-07-19] MEDS: DOCUSATE SODIUM/SENNA 50/8.6MG TAB PO SCH ×2 (08:19→21:41)
[2020-07-19] MEDS: LORazepam 0.5 MG TAB PO SCH ×3 (08:19→21:41)
[2020-07-19] MEDS: CHOLECALCIFEROL 1,000 UNITS 25 MCG TAB PO SCH (08:19)
[2020-07-19] MEDS: DIVALPROEX SODIUM SPRINKLE 125 MG CAP PO SCH ×3 (08:20→21:41)
[2020-07-19] MEDS: BENZTROPINE MESYLATE 0.5 MG TAB PO SCH ×2 (08:20→21:41)
[2020-07-19] MEDS: ACETAMINOPHEN 325 MG TAB PO PRN ×2 (08:21→14:58)
--- NOTE | 2020-07-19 09:13 | Orthopedic Progress Note ---
Date of Service July 19, 2020 Assessment & Plan (1) Closed fracture of right hip: POD 1 s/p Right TFN Acute Blood Loss Anemia - secondary to fx; iv dilutional effect; surgery - Follow H/H PT/OT - as able. PWB RLE DVT prophylaxis - ASA bid, continue SCD's Pain management as written. Admission and Anticipated Discharge Date Admission Date: July 17, 2020 Subjective POD 1 s/p Right TFN Pt currently getting cleaned up by nursing staff. Staff states he seems to have good pain control and has not complained unless trying to move the RLE. Pt appears comfortable. Physical Exam Physical Exam: Right thigh with mild swelling. Dressings C/D/I. Calves soft,NT. Initiating DF of the foot causes the patient some discomfort in the hip. Actively moving the foot at this time. Pulses equal bilaterally of the LE's. Sensation appears intact. Results & Data ([facility]) Vital Signs (Past 12 Hours) Vital Signs Temp Pulse Pulse Pulse Resp BP Pulse Ox 07/19/20 07:16 36.5 C 96 H 20 160/75 H 91 07/19/20 04:52 36.6 C 79 18 123/80 93 07/19/20 00:45 124 H 07/18/20 23:00 36.4 C L 97 H 18 122/82 90 Laboratory Results Laboratory Results WBC 8.23 K/uL (4.8-10.8) 07/19/20 06:42 RBC 2.56 M/uL (4.7-6.1) L 07/19/20 06:42 Hgb 8.6 g/dL (14.0-18.0) L 07/19/20 06:42 Hct 25.4 % (42-52) L 07/19/20 06:42 MCV 99.2 fL (80-100) 07/19/20 06:42 MCH 33.6 pg (25-34) 07/19/20 06:42 MCHC 33.9 g/dL (32-36) 07/19/20 06:42 RDW Std Deviation 50.0 fL (36.4-46.3) H 07/19/20 06:42 RDW Coeff of Marcellus 13.9 % (11.5-14.5) 07/19/20 06:42 Plt Count 206 K/uL (130-400) 07/19/20 06:42 MPV 10.4 fL (7.4-10.4) 07/19/20 06:42 Immature Gran % (Auto) 0.2 % 07/19/20 06:42 Neut % (Auto) 62.3 % 07/19/20 06:42 Lymph % (Auto) 16.5 % 07/19/20 06:42 [place] % (Auto) 17.9 % 07/19/20 06:42 Eos % (Auto) 2.7 % 07/19/20 06:42 Baso % (Auto) 0.4 % 07/19/20 06:42 Neut # (Auto) 5.13 K/uL (1.4-6.5) 07/19/20 06:42 Lymph # (Auto) 1.36 K/uL (1.2-3.4) 07/19/20 06:42 [place] # (Auto) 1.47 K/uL (0.11-0.59) H 07/19/20 06:42 Eos # (Auto) 0.22 K/uL (0-0.5) 07/19/20 06:42 Baso # (Auto) 0.03 K/uL (0-0.2) 07/19/20 06:42 Immature Gran # (Auto) 0.02 K/uL (0.00-0.02) 07/19/20 06:42 PT 10.8 Seconds (9.0-12.0) 07/17/20 13:46 INR 1.0 (0.9-1.1) 07/17/20 13:46 APTT 26.6 Seconds (21.0-31.0) 07/17/20 13:46 PTT Ratio 1.0 07/17/20 13:46 Sodium 140 mmol/L (136-145) 07/19/20 06:42 Potassium 4.3 mmol/L (3.5-5.1) 07/19/20 06:42 Chloride 106 mmol/L (98-107) 07/19/20 06:42 Carbon Dioxide 31 mmol/L (21-32) 07/19/20 06:42 Anion Gap 3.0 (3-11) 07/19/20 06:42 BUN 13 mg/dl (7-18) 07/19/20 06:42 Creatinine 0.65 mg/dl (0.6-1.4) 07/19/20 06:42 Est Cr Clr Drug Dosing 106.7 ml/min 07/19/20 06:42 Est GFR ( Amer) 116.7 07/19/20 06:42 Est GFR (Non-Af Amer) 100.7 07/19/20 06:42 BUN/Creatinine Ratio 19.1 (10-20) 07/19/20 06:42 Glucose 94 mg/dl (70-99) 07/19/20 06:42 Calcium 8.4 mg/dl (8.5-10.1) L 07/19/20 06:42 Troponin I < 0.015 ng/ml (0-0.045) 07/17/20 13:46 25-OH Vitamin D Total 48.0 ng/ml (30-100) 07/18/20 05:33 Urine Color Yellow 07/17/20 14:29 Urine Appearance Clear (Clear) 07/17/20 14:29 Urine pH 5.0 (4.5-7.5) 07/17/20 14:29 Ur Specific Vaughn 1.029 (1.000-1.030) 07/17/20 14:29 Urine Protein Negative (Negative) 07/17/20 14:29 Urine Glucose (UA) Negative (Negative) 07/17/20 14:29 Urine Ketones 1+ (Negative) H 07/17/20 14:29 Urine Blood Negative (Negative) 07/17/20 14:29 Urine Nitrite Negative (Negative) 07/17/20 14:29 Urine Bilirubin Negative (Negative) 07/17/20 14:29 Urine Urobilinogen Negative (Negative) 07/17/20 14:29 Ur Leukocyte Esterase Negative (Negative) 07/17/20 14:29 Nasal Screen MRSA (PCR) Negative (Negative) 07/17/20 22:20 COVID-19 Eval Order Covid19 [facility]Now [facility] 07/18/20 07:45 SARS-CoV-2, RNA, NAAT NEGATIVE (NEGATIVE) 07/18/20 07:45 Blood Type A Positive 07/17/20 13:55 Antibody Screen NEGATIVE 07/17/20 13:55 (1) Closed fracture of right hip Encounter type: initial encounter Qualified Code(s): S72.001A - Fracture of unspecified part of neck of right femur, initial encounter for closed fracture
[2020-07-19] MEDS: HYDROmorphone INJ 0.5 MG/0.5 ML SYR IV PRN (10:58)
[2020-07-19] MEDS: ACETAMINOPHEN 325 MG TAB PO SCH (21:40)
[2020-07-19] MEDS: ASPIRIN 81 MG ECTAB PO SCH (21:41)
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
[2020-07-20] MEDS: LACTATED RINGER'S 1,000 ML IV SCH ×2 (01:21→08:11)
--- NOTE | 2020-07-20 07:51 | Orthopedic Progress Note ---
Date of Service July 20, 2020 Assessment & Plan (1) Closed fracture of right hip: POD 2 s/p Right TFN Acute Blood Loss Anemia - secondary to fx; iv dilutional effect; surgical loss - Follow H/H PT/OT - as able. PWB RLE DVT prophylaxis - ASA bid, continue SCD's Pain management as written. Admission and Anticipated Discharge Date Admission Date: July 17, 2020 Subjective POD 2 Pt lying bed awake, alert. Somewhat conversant this AM. A little difficult to understand. Denies pain at this time. Appears comfortable. Physical Exam Physical Exam: Mild swelling around the incisions. Minimal drainage. Calves soft,NT. NV intact. Results & Data ([facility]) Vital Signs (Past 12 Hours) Vital Signs Temp Pulse Pulse Resp BP Pulse Ox 07/20/20 07:45 85 07/20/20 07:35 36.9 C 82 18 137/71 93 07/20/20 04:00 37.0 C 88 18 133/80 94 07/20/20 00:02 95 H 07/19/20 23:00 37.1 C 84 18 121/72 93 (1) Closed fracture of right hip Encounter type: initial encounter Qualified Code(s): S72.001A - Fracture of unspecified part of neck of right femur, initial encounter for closed fracture
[2020-07-20 08:21] LABS: Hematocrit (blood only) 24.2 % (42-52); Hemoglobin 8.2 g/dL (14.0-18.0); Mean Corpuscular Hemoglobin 33.3 pg (25-34); Mean Corpuscular Hgb Conc 33.9 g/dL (32-36); Mean Corpuscular Volume 98.4 fL (80-100); Mean Platelet Volume 9.5 fL (7.4-10.4); Platelet Count 227 K/uL (130-400); RDW Standard Deviation 50.1 fL (36.4-46.3); Red Blood Count 2.46 M/uL (4.7-6.1); White Blood Count 6.48 K/uL (4.8-10.8)
[2020-07-20] MEDS: BENZTROPINE MESYLATE 0.5 MG TAB PO SCH (08:31)
[2020-07-20] MEDS: DIVALPROEX SODIUM SPRINKLE 125 MG CAP PO SCH (08:31)
[2020-07-20] MEDS: DOCUSATE SODIUM/SENNA 50/8.6MG TAB PO SCH (08:31)
[2020-07-20] MEDS: LORazepam 0.5 MG TAB PO SCH ×2 (08:31→14:32)
[2020-07-20] MEDS: CHOLECALCIFEROL 1,000 UNITS 25 MCG TAB PO SCH (08:32)
[2020-07-20] MEDS: MIDODRINE HCL 2.5 MG TAB PO SCH ×3 (08:32→16:03)
[2020-07-20] MEDS: haloperidoL 5 MG TAB PO SCH (08:32)
[2020-07-20] MEDS: ASPIRIN 81 MG ECTAB PO SCH (08:33)
[2020-07-20] MEDS: HYDROmorphone INJ 0.5 MG/0.5 ML SYR IV PRN (08:43)
[2020-07-20 08:49] LABS: BUN Creatinine Ratio 23.6 (10-20); Calcium 8.8 mg/dl (8.5-10.1); Creatinine Clr Calc Pharmacy 119.6 ml/min; Est GFR (African American) 122.3; Est GFR (Non-African American) 105.5
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
== END 2020-07-20 16:37 | DRG 481 ==
LOC: ED 13:16 → 2N 16:00 → SUATTDRO 16:00 → 2N 19:28

== ENCOUNTER 2021-07-12 22:12 | Inpatient (IN) ==
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
[2021-07-12] MEDS ORDERED: ACETAMINOPHEN 1,000 MG/100 ML VIAL IV STA (22:36)
[2021-07-12] MEDS ORDERED: SODIUM CHLORIDE 0.9% 1000ML 1,000 ML IV ONE (22:36)
[2021-07-12] MEDS ORDERED: ALBUT/IPRATROP 3MG/0.5MG NEB 3 ML VIAL NEB ONE (22:38)
[2021-07-12 22:55] LABS: Basophils # (auto) 0.02 K/uL (0-0.2); Basophils % (auto) 0.3 %; Eosinophils # (auto) 0.01 K/uL (0-0.5); Eosinophils % (auto) 0.1 %; Hematocrit (blood only) 41.6 % (42-52); Hemoglobin 13.9 g/dL (14.0-18.0); Immature Granulocytes # (auto) 0.02 K/uL (0.00-0.02); Immature Granulocytes % (auto) 0.3 %; Lymphocytes % (auto) 7.1 %; Mean Corpuscular Hemoglobin 32.5 pg (25-34); Mean Corpuscular Hgb Conc 33.4 g/dL (32-36); Mean Corpuscular Volume 97.2 fL (80-100); Mean Platelet Volume 9.6 fL (7.4-10.4); Monocytes # (auto) 0.66 K/uL (0.11-0.59); Monocytes % (auto) 9.4 %; Neutrophils # (auto) 5.82 K/uL (1.4-6.5); Neutrophils % (auto) 82.8 %; Platelet Count 260 K/uL (130-400); RDW Coefficient of Variation 15.2 % (11.5-14.5); RDW Standard Deviation 53.6 fL (36.4-46.3); Red Blood Count 4.28 M/uL (4.7-6.1); White Blood Count 7.03 K/uL (4.8-10.8)
[2021-07-12 23:05] LABS: INR 1.1 (0.9-1.1); Partial Thromboplastin Time 26.2 Seconds (21.0-31.0); Prothrombin Time 10.7 Seconds (9.0-12.0)
[2021-07-12 23:12] LABS: Alanine Aminotransferase 14 U/L (12-78); Albumin Level 3.4 gm/dl (3.4-5.0); Aspartate Aminotransferase 10 U/L (15-37); BUN Creatinine Ratio 19.4 (10-20); Blood Urea Nitrogen 21 mg/dl (7-18); Carbon Dioxide 25 mmol/L (21-32); Chloride 106 mmol/L (98-107); Creatinine Clr Calc Pharmacy 46.9 ml/min; Est GFR (African American) 83.2 ml/min; Est GFR (Non-African American) 71.8 ml/min; Glucose 104 mg/dl (70-99); Magnesium 1.9 mg/dl (1.8-2.4); Potassium 4.8 mmol/L (3.5-5.1); Sodium 139 mmol/L (136-145)
[2021-07-12 23:16] LABS: Albumin Globulin Ratio 0.7 (0.9-2); Alkaline Phosphatase 135 U/L (45-117); Bilirubin,Total 0.7 mg/dl (0.2-1); Globulin 4.5 gm/dl (2.5-4.0); Total Protein 7.9 gm/dl (6.4-8.2); Troponin I < 0.015 ng/ml (0-0.045)
[2021-07-13] MEDS ORDERED: PIPERACILL/TAZOBAC CONSULT ACTIVE PRN ×2 (01:32→04:24)
[2021-07-13] MEDS ORDERED: levoFLOXacin/D5W 750 MG/150 ML BAG IV STA (01:32)
[2021-07-13] MEDS ORDERED: VANCOMYCIN HCL 1,000 MG in SODIUM CHLORIDE 0.9% 500 ML IV ONE (01:32)
[2021-07-13] MEDS ORDERED: PIPERACILLIN/TAZOBACTAM 4.5 GM/120 ML BAG IV ONE (01:32)
[2021-07-13] MEDS ORDERED: VANCOMYCIN CONSULT ACTIVE PRN ×2 (01:32→22:45)
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
[2021-07-13] MEDS ORDERED: ACETAMINOPHEN 325 MG TAB PO PRN (04:24)
[2021-07-13] MEDS ORDERED: LACTATED RINGER'S 1,000 ML IV SCH (04:24)
[2021-07-13 05:06] LABS: Base Excess VBG -0.9 mEq/L; HCO3 VBG 27 mmol/L; Oxygen Saturation VBG < 60.0 %; PCO2 VBG 59 mmHg (38-50); PO2 VBG 32 mmHg; pH VBG 7.28 (7.36-7.41)
[2021-07-13 05:31] LABS: Thyroid Stimulating Hormone 0.772 uIu/ml (0.300-4.500)
[2021-07-13] MEDS ORDERED: PIPERACILLIN/TAZOBACTAM 3.375 GM in DEXTROSE 5% 100 ML IV SCH (06:00)
[2021-07-13 06:39] LABS: Appearance Urine Clear (Clear); Bacteria Urine Automated 2+ (Negative); Bilirubin Urine Negative (Negative); Blood Urine Trace (Negative); Color Urine Yellow; Epithelial Cell Urine Auto 0-5 /lpf (0-5); Glucose Urine UA Negative (Negative); Ketones Urine 1+ (Negative); Leukocyte Esterase Urine Negative (Negative); Nitrite Urine Positive (Negative); Protein Urine Negative (Negative); RBC Urine Automated 0-4 /hpf (0-4); Specific Gravity Urine > 1.045 (1.000-1.030); Urobilinogen Urine Negative (Negative); WBC Urine Automated >30 /hpf (0-5)
--- NOTE | 2021-07-13 07:37 | CT Scan Report ---
HEAD CT NONCONTRAST CT DOSE: 821.00 mGycm HISTORY: Altered mental status. TECHNIQUE: Multiaxial CT images of the head were performed without the use of intravenous contrast. A utomated exposure control was utilized for this study. A dose lowering technique was utilized adheri ng to the principles of ALARA. Comparison: 07/17/2020. Findings: The paranasal sinuses and mastoid air cells are clear. There are punctate metallic densitie s within the parafalcine locations of the brain near the vertex. Large areas of encephalomalacia with in the frontoparietal regions are also again noted. There is no mass, hematoma, midline shift, or acu te infarct. Impression: No significant change compared to the prior study. No acute intracranial abnormality. Old posttraumat ic changes are again noted. ACT 112: Negative or not required by law. Electronically signed by: Catracho Garcia M.D. 07/13/2021 7:36 AM
[2021-07-13] MEDS ORDERED: LORazepam 0.5 MG TAB PO SCH (08:00)
--- NOTE | 2021-07-13 08:55 | CT Scan Report ---
CHEST CTA for PULMONARY ARTERIES CT DOSE: 510.75 mGycm HISTORY: Shortness of breath. TECHNIQUE: Multiaxial CT images of the chest were performed following the intravenous administration of contrast to evaluate the pulmonary arteries. Maximal intensity projection images were also obtaine d. A dose lowering technique was utilized adhering to the principles of ALARA. COMPARISON STUDY: None. FINDINGS: Normal caliber thoracic aorta with no evidence for dissection. The heart is normal in size. No pleural or pericardial effusions. No mediastinal or hilar lymphadenopathy. Multiple compression d eformities seen throughout the thoracic spine. These are technically age indeterminate but likely chr onic. Limited views of the upper abdomen demonstrate a normal liver and a few calcified granulomas wi thin the spleen. Nondiagnostic evaluation within the majority of the segmental and subsegmental pulmo nary arteries due to the motion artifact. The main and lobar pulmonary arteries appear patent. Patchy airspace opacities within the bilateral lower lobes posteriorly with mucoid opacification of the lef t lower lobe bronchi. Therefore, this likely represents a pneumonia and may be secondary to aspiratio n. No pneumothorax. IMPRESSION: 1. No evidence for central pulmonary embolus. 2. Patchy airspace opacities within the bilateral lower lobes with mucoid opacification of the left l ower lobe bronchi. Therefore, this likely represents a pneumonia and may be secondary to aspiration. 3. Multiple thoracic spine compression fractures. These are technically age indeterminate but likely old. ACT 112: Negative or not required by law. Electronically signed by: Catracho Garcia M.D. 07/13/2021 8:53 AM
[2021-07-13] MEDS ORDERED: cefTRIAXone SODIUM 1,000 MG in DEXTROSE 5% 50 ML IV SCH (09:00)
[2021-07-13] MEDS: ASPIRIN 81 MG CHEW PO SCH ×2 (09:14→16:03)
[2021-07-13] MEDS: DIVALPROEX SODIUM SPRINKLE 125 MG CAP PO SCH ×3 (09:14→22:06)
[2021-07-13] MEDS: ACETAMINOPHEN 325 MG TAB PO SCH ×2 (09:14→22:05)
[2021-07-13] MEDS: DOCUSATE SODIUM/SENNA 50/8.6MG TAB PO SCH ×2 (09:14→22:06)
[2021-07-13] MEDS: BENZTROPINE MESYLATE 0.5 MG TAB PO SCH ×2 (09:14→22:05)
[2021-07-13] MEDS: MIDODRINE HCL 10 MG TAB PO SCH ×3 (09:14→16:04)
[2021-07-13] MEDS: haloperidoL 5 MG TAB PO SCH ×2 (09:15→16:04)
[2021-07-13] MEDS: FLUoxetine HCL 20 MG CAP PO SCH (09:15)
--- NOTE | 2021-07-13 10:13 | XRay Report ---
XR chest 1V portable HISTORY: SEPSIS COMPARISON: Chest 07/17/2020. FINDINGS: No pneumothorax. No pleural effusions. The heart remains borderline enlarged. Right lung is clear. There are few left basilar densities. The bones are osteopenic. There is a tortuous thoracic aorta. IMPRESSION: Patchy left basilar densities. This may represent a developing pneumonia. ACT 112: Negative or not required by law. Electronically signed by: Catracho Garcia M.D. 07/13/2021 10:12 AM
--- NOTE | 2021-07-13 11:36 | Electrocardiogram Report ---
Test Reason : Blood Pressure : / mmHG Vent. Rate : 108 BPM Atrial Rate : 108 BPM P-R Int : 136 ms QRS Dur : 120 ms QT Int : 346 ms P-R-T Axes : 061 -78 009 degrees QTc Int : 463 ms Poor data quality, interpretation may be adversely affected Sinus tachycardia with frequent Premature ventricular complexes Right bundle branch block Left anterior fascicular block Possible Old Inferior infarct Abnormal ECG When compared with ECG of 17-JUL-2020 13:58, Premature ventricular complexes are now Present Left anterior fascicular block is now Present Confirmed by Clarence Babb ([id number]) on 07/13/2021 11:36:15 AM Referred By: [facility] Confirmed By:Clarence Babb
[2021-07-13] MEDS ORDERED: HALOPERIDOL LACTATE 5 MG/ML 1 ML VIAL IM ONE (13:08)
--- NOTE | 2021-07-13 13:33 | Hospitalist Progress Note ---
Date of Service July 13, 2021 Assessment & Plan (1) AMS (altered mental status): Plan: Shayne is a 70-year-old male with a history of severe dementia, paranoid schizophrenia, TBI, GERD, and BPH who presents from [facility] for an unresponsive episode. Altered mental status, suspect 2/2 metabolic encephalopathy of aspiration pneumonia On admission patient patient appears encephalopathic. Per nurse at admission patient is alert and speaks at times, when Case discussed with daytime nurse reported that he typically can indicate some yes no answers but offers little spontaneous speech and has severe dementia. Reports that he is incontinent of bowel and bladder at baseline, and is not oriented. CTH: No acute stroke on admission, MRI deferred pending clinical course Ammonia negative, TSH normal, U tox negative, UA with 2+ bacteria and positive nitrite VBG suggestive of respiratory acidosis (pH 7.28, PCO2 59, HCO3 27) CT suggestive of aspiration PNA, treated as noted in hypoxia/PNA UA infected appearing, patient incontinent at baseline, common urinary pathogens covered by pneumonia treatment as noted with UC pending (2) Hypoxia: Plan: Suspect aspiration event leading to acute hypoxic respiratory failure 2/[address]-C: No evidence for central pulmonary embolus, Patchy airspace opacities within the bilateral lower lobes with mucoid opacification of the left lower lobe bronchi. Therefore, this likely represents a pneumonia and may be secondary to aspiration, Multiple thoracic spine compression fractures. These are technically age indeterminate but likely old. Suspect metabolic encephalopathy due to aspiration pneumonia with frail baseline Zosyn narrowed to Unasyn, MRSA nare negative CBC daily -Tylenol PRN (3) Hypotension: Plan: Chronic -Continue Midodrine (4) Anxiety disorder: Plan: Chronic -Ativan PRN with caution -Prozac daily (5) Dementia with behavioral disturbance: Plan: Patient somnolent at present -Haldol BID with Cogentin -Divalproex (6) Paranoid schizophrenia: Plan: As above, haldol, Divalproex and Cogentin (7) Aspiration pneumonia: Plan: - management as noted in hypoxia (8) Hematuria: Plan: Patient with Escalera catheter placed on admission, patient self removed Escalera Soft mitts placed for removal of medical equipment Escalera replaced tamponade effect, continue to follow output Long is no gross hematuria occurs fever removal today/tomorrow with [place] catheter (9) UTI (urinary tract infection): Plan: Infected appearing urine on admission, sent for culture Suspect presentation due to aspiration event/pneumonia as noted and hypoxia, common urinary pathogens covered by pneumonia treatment Follow cultures Unable to assess urinary symptoms due to cognitive status Admission and Anticipated Discharge Date Admission Date: July 13, 2021 Subjective Patient seen at bedside this morning. Patient with increased muscle tone, gazes around the room spontaneously. Answers yes or no questions inconsistently, but is able to give name and replies "yes "consistently when asked if his name is Shayne, and is able to verbalize Gustavo as his last name.. Is not oriented/does not verbalize orientation to place, date. Does not follow 1 or two-step commands. Discussed patient baseline with nurse at [facility]. Per their report he is fully verbal and usually answers yes/no questions at baseline. Occasionally but rarely offer spontaneous speech. Reports that he has severe dementia, and is incontinent of urine and stool at baseline. Receives Ativan and Haldol twice daily, and is occasionally combative but redirectable. Able to swallow and tolerate pills/meals with encouragement. Primary contact is his sister Ileana Spangler, attempted to reach by phone but was not available, no voicemail service is set up. Review of Systems Review of Systems: Unobtainable due to cognitive status Physical Exam Physical Exam: General: Gazes around the room spontaneously, frail, thin. Does not follow 1 or two-step commands, is able to verbalize name. Inconsistently answers yes/no questions. HEENT: Atraumatic, normocephalic. Pupils equal and reactive to light and accommodation, EOM grossly intact but does not follow Mansour guided assessment. Pulm: Diminished air movement globally, bibasilar crackles/coarse. Cardiac: RRR, systolic murmur present. Radial pulses intact and symmetrical. Abdominal: Does not grimace on abdominal palpation : Escalera in place, red/blood-tinged urine present in Escalera Extremities: Flexion spasticity of the arms, ankle clonus is present. Patient does not follow commands for strength assessment. Opens eyes to soft touch in lo wer extremities and hands. Results & Data Results & Data ([facility]) Vital Signs (Past 12 Hours) Vital Signs Temp Pulse Pulse Resp BP BP Pulse Ox 07/13/21 11:55 113 H 17 118/84 97 07/13/21 07:33 36.5 C 94 H 17 107/72 96 07/13/21 04:31 36.5 C 95 H 16 133/88 93 07/13/21 03:41 36.6 C 93 H 20 99/78 L 99 07/13/21 03:04 96 H 18 96/77 L 98 07/13/21 02:00 100 H 94/67 L 95 07/13/21 01:30 117 H 111/78 95 PG Care Time/CCT Total # of Minutes Spent Total Time Spent with Patient: Total time spent is greater than 50% in mash tub cooker rdination of care (as documented) at patient's floor/unit and/or counseling patient: Coding Level of Care Code None Diagnoses AMS (altered mental status) R41.82 Hypoxia R09.02 Hypotension I95.9 Anxiety disorder F41.9 Dementia with behavioral disturbance F03.91 Paranoid schizophrenia F20.0 Aspiration pneumonia J69.0 Hematuria R31.9 UTI (urinary tract infection) N39.0
[2021-07-13] MEDS ORDERED: HALOPERIDOL LACTATE 5 MG/ML 1 ML VIAL ONE (13:49)
[2021-07-13] MEDS: AMPICILLIN/SULBACTAM SOD 3,000 MG in 0.9 % SODIUM CHLORIDE 100 ML IV SCH ×2 (15:16→21:00)
[2021-07-13] MEDS: LORazepam 0.5 MG/1 ML VIAL IV SCH (21:00)
[2021-07-14] MEDS ORDERED: VANCOMYCIN HCL 750 MG in SODIUM CHLORIDE 0.9% 250 ML IV SCH
[2021-07-14] MEDS: AMPICILLIN/SULBACTAM SOD 3,000 MG in 0.9 % SODIUM CHLORIDE 100 ML IV SCH ×4 (02:23→20:19)
[2021-07-14 06:46] LABS: Basophils # (auto) 0.01 K/uL (0-0.2); Basophils % (auto) 0.1 %; Eosinophils # (auto) 0.03 K/uL (0-0.5); Eosinophils % (auto) 0.4 %; Hematocrit (blood only) 32.2 % (42-52); Hemoglobin 10.8 g/dL (14.0-18.0); Immature Granulocytes # (auto) 0.02 K/uL (0.00-0.02); Immature Granulocytes % (auto) 0.2 %; Lymphocytes # (auto) 0.98 K/uL (1.2-3.4); Lymphocytes % (auto) 11.4 %; Mean Corpuscular Hemoglobin 32.7 pg (25-34); Mean Corpuscular Hgb Conc 33.5 g/dL (32-36); Mean Corpuscular Volume 97.6 fL (80-100); Mean Platelet Volume 9.3 fL (7.4-10.4); Monocytes # (auto) 0.94 K/uL (0.11-0.59); Neutrophils # (auto) 6.58 K/uL (1.4-6.5); Neutrophils % (auto) 76.9 %; Platelet Count 219 K/uL (130-400); RDW Coefficient of Variation 15.4 % (11.5-14.5); RDW Standard Deviation 54.9 fL (36.4-46.3); White Blood Count 8.56 K/uL (4.8-10.8)
[2021-07-14] MEDS: MIDODRINE HCL 10 MG TAB PO SCH ×3 (07:00→17:16)
--- NOTE | 2021-07-14 07:07 | Hospitalist Progress Note ---
Date of Service July 14, 2021 Assessment & Plan (1) AMS (altered mental status): Plan: Shayne is a 70-year-old male with a history of severe dementia, paranoid schizophrenia, TBI, GERD, and BPH who presents from [facility] for an unresponsive episode. Altered mental status, suspect 2/2 metabolic encephalopathy of aspiration pneumonia Improving, nearing cognitive baseline consistent with report obtained from RN at [facility] CTH: No acute stroke on admission, MRI deferred pending clinical course Ammonia negative, TSH normal, U tox negative, UA with 2+ bacteria and positive nitrite VBG suggestive of respiratory acidosis (pH 7.28, PCO2 59, HCO3 27) CT suggestive of aspiration PNA, treated as noted in hypoxia/PNA UA infected appearing, UC with gram-negative bacilli pending speciation. Continue Unasyn, may narrow once speciation available but recommend continuing coverage for potential comorbid aspiration pneumonia (2) Hypoxia: Plan: Suspect aspiration event leading to acute hypoxic respiratory failure 2/[address]-C: No evidence for central pulmonary embolus, Patchy airspace opacities within the bilateral lower lobes with mucoid opacification of the left lower lobe bronchi. Therefore, this likely represents a pneumonia and may be secondary to aspiration, Multiple thoracic spine compression fractures. These are technically age indeterminate but likely old. Suspect metabolic encephalopathy due to aspiration pneumonia with frail baseline Zosyn narrowed to Unasyn, MRSA nare negative. Blood cultures 1/4 bottles for GPC, consistent with contaminant. Patient clinically improving and afebrile. CBC daily -Tylenol PRN (3) Hypotension: Plan: Chronic -Continue Midodrine (4) Anxiety disorder: Plan: Chronic -Ativan PRN with caution -Prozac daily (5) Dementia with behavioral disturbance: Plan: Patient somnolent at present -Haldol BID with Cogentin -Divalproex (6) Paranoid schizophrenia: Plan: As above, haldol, Divalproex and Cogentin (7) Aspiration pneumonia: Plan: - management as noted in hypoxia (8) Hematuria: Plan: Patient with Escalera catheter placed on admission, patient self removed Escalera. Was replaced for tamponading effect, urine now draining clear light yellow urine Soft mitts placed for removal of medical equipment Escalera to be removed, [place] catheter to be placed. Meds can be discontinued once catheter removed. (9) UTI (urinary tract infection): Plan: Infected appearing urine on admission, gram-negative bacilli pending speciation and sensitivities Suspect presentation due to aspiration event/pneumonia as noted and hypoxia, common urinary pathogens covered by pneumonia treatment Follow cultures, continue Unasyn for dual coverage with potential aspiration event at this time Patient answers "no "on whether he is having pain at his penis or when peeing, but subjective extremely limited by dementia Admission and Anticipated Discharge Date Admission Date: July 13, 2021 Subjective Patient is seen at the bedside this morning. He is awake, and oriented to name but not place or date. Does not appear in distress. Appears frail and chronically ill. Offers minimal to no spontaneous speech, consistently answers no to whether he is in pain, hungry, or having difficulty breathing. Answers "yes "whether his name is Shayne. Appears to be nearing cognitive baseline consistent report on discussion with [facility] nurse. 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 Patient with severe dementia, risk/benefit of antipsychotics felt not to favor switch. Attempted to reach Sister by phone, no answer with voicemail not set up. Review of Systems Review of Systems: Unobtainable due to cognitive status Physical Exam Physical Exam: General: Gazes around the room spontaneously, frail, thin. Does not follow 1 or two-step commands, is able to verbalize name. Consistently answers "no "to most questions today as noted in subjective HEENT: Atraumatic, normocephalic. Pupils equal and reactive to light and accommodation, EOM grossly intact but does not follow motor guided assessment. Patient with spontaneous movements of the mouth and tongue. Pulm: Diminished air movement globally, bibasilar crackles/coarse, improved from prior Cardiac: RRR, systolic murmur present. Radial pulses intact and symmetrical. Abdominal: Does not grimace on abdominal palpation : Escalera in place, draining light yellow urine with no serosanguineous/sanguinous content Extremities: Flexion spasticity of the arms, ankle clonus is present. Patient does not follow commands for strength assessment. Opens eyes to soft touch in lower extremities and hands. Results & Data Results & Data ([facility]) Vital Signs (Past 12 Hours) Vital Signs Temp Pulse Pulse Resp BP Pulse Ox 07/14/21 03:02 36.8 C 95 H 17 130/83 95 07/13/21 23:59 92 H 07/13/21 23:04 37.4 C 109 H 20 123/72 92 PG Care Time/CCT Total # of Minutes Spent Total Time Spent with Patient: Total time spent is greater than 50% in coordination of care (as documented) at patient's floor/unit and/or counseling patient: Coding Level of Care Code 61016 Subseq Hosp Care Lvl 3 Diagnoses AMS (altered mental status) R41.82 Hypoxia R09.02 Hypotension I95.9 Anxiety disorder F41.9 Dementia with behavioral disturbance F03.91 Paranoid schizophrenia F20.0 Aspiration pneumonia J69.0 Hematuria R31.9 UTI (urinary tract infection) N39.0
[2021-07-14 07:24] LABS: BUN Creatinine Ratio 18.3 (10-20); Calcium 9.4 mg/dl (8.5-10.1); Creatinine Clr Calc Pharmacy 87.4 ml/min; Est GFR (African American) 113.1 ml/min; Est GFR (Non-African American) 97.5 ml/min; Potassium 3.6 mmol/L (3.5-5.1)
[2021-07-14] MEDS: LORazepam 0.5 MG/1 ML VIAL IV SCH ×2 (08:59→20:14)
[2021-07-14] MEDS: BENZTROPINE MESYLATE 0.5 MG TAB PO SCH ×2 (09:03→20:13)
[2021-07-14] MEDS: DIVALPROEX SODIUM SPRINKLE 125 MG CAP PO SCH ×3 (09:03→20:14)
[2021-07-14] MEDS: DOCUSATE SODIUM/SENNA 50/8.6MG TAB PO SCH ×2 (09:03→20:14)
[2021-07-14] MEDS: ACETAMINOPHEN 325 MG TAB PO SCH ×2 (09:03→20:13)
[2021-07-14] MEDS: FLUoxetine HCL 20 MG CAP PO SCH (09:03)
[2021-07-14] MEDS: ASPIRIN 81 MG CHEW PO SCH ×2 (09:03→17:16)
[2021-07-14] MEDS: haloperidoL 5 MG TAB PO SCH ×2 (09:04→17:16)
--- NOTE | 2021-07-14 09:28 | Pharmacy Report ---
Pharmacy Vanc AUC Short Note - Date of Service July 14, 2021 - Assessment & Plan Assessment 70 year old M receiving vancomycin and ampicillin/sulbactam for treatment of GPC bacteremia, aspiration pneumonia and urinary tract infection. Pertinent microbiologic data includes: * gram positive cocci in clusters growing in 1/2 BC (anaerobic bottle) -> this may represent a contaminant, however, due to lack of PCR data it is reasonable to continue empiric coverage with vanco until additional C&S data is available * gram negative bacilli growing in urine * MRSA nasal swab negative Plan Vancomycin * Patient received 1000 mg IV in the ED on 814 AM, then a single dose of 750 mg IV 07/14 @ 00 * Renal function has greatly improved -> will increase to 1000 mg IV q12h starting today at 1200 * This regimen is predicted to achieve target AUC/DENISE of 400-600 mg/L.hr and may be associated with a 13% risk of nephrotoxicity * AUC/DENISE is the preferred PK/PD target for vancomycin * AUC guided dosing is effective and associated with decreased risk of ne phrotoxicity compared to traditional trough targets * PK predictions: AUC24,ss: 570 mg/L.hr, PAUC: 83 %, Ctrough,ss: 17.5 mg/L Pharmacy will continue to follow and will adjust dose/frequency as necessary. Thank you.
[2021-07-14] MEDS ORDERED: VANCOMYCIN HCL 1,000 MG in SODIUM CHLORIDE 0.9% 250 ML IV SCH (12:00)
[2021-07-15] MEDS: AMPICILLIN/SULBACTAM SOD 3,000 MG in 0.9 % SODIUM CHLORIDE 100 ML IV SCH ×4 (02:34→20:23)
[2021-07-15] MEDS: MIDODRINE HCL 10 MG TAB PO SCH ×3 (06:35→17:49)
[2021-07-15] MEDS: DIVALPROEX SODIUM SPRINKLE 125 MG CAP PO SCH ×3 (08:15→20:34)
[2021-07-15] MEDS: BENZTROPINE MESYLATE 0.5 MG TAB PO SCH ×2 (08:16→20:33)
[2021-07-15] MEDS: ACETAMINOPHEN 325 MG TAB PO SCH ×2 (08:16→20:33)
[2021-07-15] MEDS: DOCUSATE SODIUM/SENNA 50/8.6MG TAB PO SCH ×2 (08:16→20:34)
[2021-07-15] MEDS: haloperidoL 5 MG TAB PO SCH ×2 (08:16→16:31)
[2021-07-15] MEDS: ASPIRIN 81 MG CHEW PO SCH ×2 (08:17→16:31)
[2021-07-15] MEDS: FLUoxetine HCL 20 MG CAP PO SCH (08:17)
[2021-07-15 08:20] LABS: Creatinine Clr Calc Pharmacy 103.4 ml/min; Est GFR (African American) 121.4 ml/min; Est GFR (Non-African American) 104.8 ml/min
[2021-07-15] MEDS: LORazepam 0.5 MG/1 ML VIAL IV SCH ×2 (08:20→20:51)
[2021-07-15] MEDS ORDERED: VANCOMYCIN TROUGH ONE ×2 (11:30)
--- NOTE | 2021-07-15 14:57 | Hospitalist Progress Note ---
Date of Service July 15, 2021 Assessment & Plan (1) AMS (altered mental status): Plan: Shayne is a 70-year-old male with a history of severe dementia, paranoid schizophrenia, TBI, GERD, and BPH who presents from [facility] for an unresponsive episode. Altered mental status, suspect 2/2 metabolic encephalopathy of aspiration pneumonia Improved quickly, appears to be at cognitive baseline consistent with report obtained from RN at [facility] CTH: No acute stroke on admission, MRI deferred pending clinical course Ammonia negative, TSH normal, U tox negative, UA with 2+ bacteria and positive nitrite VBG suggestive of respiratory acidosis (pH 7.28, PCO2 59, HCO3 27) CT suggestive of aspiration PNA, treated as noted in hypoxia/PNA UTI: Klebsiella on culture, sensitive treated with Unasyn, plan to change to Augmentin on discharge tomorrow AM complete 7 day course (2) Hypoxia: Plan: Suspect aspiration event leading to acute hypoxic respiratory failure 2/[address]-C: No evidence for central pulmonary embolus, Patchy airspace opacities within the bilateral lower lobes with mucoid opacification of the left lower lobe bronchi. Therefore, this likely represents a pneumonia and may be secondary to aspiration, Multiple thoracic spine compression fractures. These are technically age indeterminate but likely old. Suspect metabolic encephalopathy due to aspiration pneumonia with frail baseline Zosyn narrowed to Unasyn, MRSA nare negative. Blood cultures 1/4 bottles for GPC, consistent with contaminant. Patient clinically improving and afebrile. CBC daily -Tylenol PRN breathing well on room air today (3) Hypotension: Plan: Chronic -Continue Midodrine (4) Anxiety disorder: Plan: Chronic -Ativan PRN with caution -Prozac daily (5) Dementia with behavioral disturbance: Plan: Patient somnolent at present -Haldol BID with Cogentin -Divalproex (6) Paranoid schizophrenia: Plan: As above, haldol, Divalproex and Cogentin (7) Aspiration pneumonia: Plan: - management as noted in hypoxia Unasyn, change to Augmentin on discharge for 7 day course (8) Hematuria: Plan: Patient with Escalera catheter placed on admission, patient self removed Escalera. Was replaced for tamponading effect, urine now draining clear light yellow urine Soft mitts placed for removal of medical equipment Escalera to be removed, [place] catheter to be placed. Meds can be discontinued once catheter removed. (9) UTI (urinary tract infection): Plan: Infected appearing urine on admission, gram-negative bacilli -- Klebsiella Admission and Anticipated Discharge Date Admission Date: July 13, 2021 Subjective patient is stable today, eating well, no issues with labs, vitals normal likely back to his baseline he can return to [facility] tomorrow reviewed labs and chart today Review of Systems Review of Systems: Unobtainable due to cognitive status (dementia) Physical Exam Constitutional: well developed, + thin and + frail appearing; no acute distress Neck: trachea midline, no thyromegaly Respiratory: normal respiratory effort, lungs clear to auscultation Cardiovascular: RRR, no murmur, no edema Gastrointestinal (Abdomen): normal bowel sounds, soft, nontender, no hepatosplenomegaly Skin: no rashes, warm and dry Neurologic: CN's II-XI intact bilaterally, moves all extremities, awake and + confused; no focal motor deficits Psychiatric: Orientation: alert, oriented to person and + guarded; + not oriented to place and + not oriented to time Results & Data Results & Data ([facility]) Vital Signs (Past 12 Hours) Vital Signs Temp Pulse Pulse Pulse Resp BP Pulse Ox 07/15/21 11:31 36.2 C L 83 18 167/93 H 96 07/15/21 07:52 36.7 C 86 20 161/98 H 96 07/15/21 07:25 79 07/15/21 03:23 37 C 95 H 19 147/93 H 95 Laboratory Results Laboratory Results - last 24 hr 07/15/21 07:37 Creatinine 0.58 L Est Cr Clr Drug Dosing 103.4 Est GFR ( Amer) 121.4 Est GFR (Non-Af Amer) 104.8 Medications Administered Current Inpatient Medications Acetaminophen (Acetaminophen 325 Mg Tab) 650 mg PO BID [facility] Stop: 08/12/21 08:59 Last Admin: 07/15/21 08:16 Dose: 650 mg Documented by: Acetaminophen (Acetaminophen 325 Mg Tab) 650 mg PO Q6H PRN PRN Reason: Pain or Fever Stop: 08/12/21 04:23 Aspirin (Aspirin 81 Mg Chew) 81 mg PO BIDM [facility] Stop: 08/12/21 07:59 Last Admin: 07/15/21 08:17 Dose: 81 mg Documented by: Benztropine Mesylate (Benztropine Mesylate 0.5 Mg Tab) 0.5 mg PO BID [facility] Stop: 08/12/21 08:59 Last Admin: 07/15/21 08:16 Dose: 0.5 mg Documented by: Divalproex Sodium (Divalproex Sodium Sprinkle 125 Mg Cap) 500 mg PO TID@0900,1700,2100 [facility] Stop: 08/12/21 08:59 Last Admin: 07/15/21 08:15 Dose: 500 mg Documented by: Fluoxetine HCl (Fluoxetine Hcl 20 Mg Cap) 20 mg PO DAILY [facility] Stop: 08/12/21 08:59 Last Admin: 07/15/21 08:17 Dose: 20 mg Documented by: Haloperidol (Haloperidol 5 Mg Tab) 5 mg PO BID17 [facility]ON[facility] Stop: 08/12/21 08:59 Last Admin: 07/15/21 08:16 Dose: 5 mg Documented by: Ampicillin Sodium/Sulbactam Sodium 3,000 mg/ Sodium Chloride 108 mls @ 200 mls/hr IV Q6H [facility]; Protocol Stop: 07/18/21 14:59 Last Admin: 07/15/21 14:54 Dose: 200 mls/hr Documented by: Lorazepam (Ativan) 0.5 mg in 1 mls @ 0.5 mls/min IV BID [facility] Stop: 08/12/21 20:59 Last Admin: 07/15/21 08:20 Dose: 0.5 mls/min Documented by: Lorazepam (Lorazepam 0.5 Mg Tab) 0.5 mg PO TID@0800,1600,2359 [facility] Stop: 08/12/21 07:59 Last Admin: 07/13/21 09:14 Dose: Not Given Documented by: Midodrine (Midodrine Hcl 10 Mg Tab) 10 mg PO TID@0700,1200,1800 [facility] Stop: 08/12/21 06:59 Last Admin: 07/15/21 11:21 Dose: 10 mg Documented by: Senna/Docusate Sodium (Docusate Sodium/Senna 50/8.6mg Tab) 1 tab PO BID [facility] Stop: 08/12/21 08:59 Last Admin: 07/15/21 08:16 Dose: 1 tab Documented by: PG Care Time/CCT Total # of Minutes Spent Total Time Spent with Patient: Total time spent is greater than 50% in coordination of care (as documented) at patient's floor/unit and/or counseling patient: Coding Level of Care Code 53923 Subseq Hosp Care Lvl 2 Diagnoses AMS (altered mental status) R41.82 Hypoxia R09.02 Hypotension I95.9 Anxiety disorder F41.9 Dementia with behavioral disturbance F03.91 Paranoid schizophrenia F20.0 Aspiration pneumonia J69.0 Hematuria R31.9 UTI (urinary tract infection) N39.0
[2021-07-16] MEDS: AMPICILLIN/SULBACTAM SOD 3,000 MG in 0.9 % SODIUM CHLORIDE 100 ML IV SCH ×2 (03:23→10:45)
[2021-07-16] MEDS: MIDODRINE HCL 10 MG TAB PO SCH ×3 (06:28→10:57)
[2021-07-16 07:11] LABS: Creatinine Clr Calc Pharmacy 103.4 ml/min; Est GFR (African American) 120.6 ml/min
--- NOTE | 2021-07-16 09:21 | Discharge Summary ---
Date of Service July 16, 2021 Admission HPI Per Admitting Provider Shayne Chen is a 70yo male coming from [facility] with complaint of unresponsiveness x 3 hours as well as hypoxia - saturations reported to be 80% on room air which improved to 92% on 6L NC. Of note, patient is nonverbal during encounter. History obtained through discussion with ER attending, chart review and discussion with staff from patient's [place] [facility]. Nurse from [facility] states that usually patient is able to verbally communicate, follow commands. Principal Diagnosis encephalopathy due to UTI and pneumonia Discharge Exam Constitutional well developed, + thin and + frail appearing; no acute distress Neck trachea midline, no thyromegaly Respiratory normal respiratory effort, lungs clear to auscultation Cardiovascular RRR, no murmur, no edema Gastrointestinal (Abdomen) normal bowel sounds, soft, nontender, no hepatosplenomegaly Skin no rashes, warm and dry Neurologic CN's II-XI intact bilaterally, moves all extremities, awake and + confused; no focal motor deficits Psychiatric Orientation: alert, oriented to person and + guarded; + not oriented to place and + not oriented to time Discharge Data Allergies Allergy/AdvReac Type Severity Reaction Status Date / Time No Known Allergies Allergy Verified 07/12/21 23:13 Consultations 07/13/21 01:33 ED Decision to Admit Stat Ordered Studies 07/12/21 22:38 CT angio chest PE protocol Urgent CT head/brain wo con Urgent Hospital Course (1) AMS (altered mental status): Shayne is a 70-year-old male with a history of severe dementia, paranoid schizophrenia, TBI, GERD, and BPH who presents from [facility] for an unresponsive episode. Altered mental status, suspect 2/2 metabolic encephalopathy of aspiration pneumonia Improved quickly, appears to be at cognitive baseline consistent with report obtained from RN at [facility] CTH: No acute stroke on admission, MRI deferred pending clinical course Ammonia negative, TSH normal, U tox negative, UA with 2+ bacteria and positive nitrite VBG suggestive of respiratory acidosis (pH 7.28, PCO2 59, HCO3 27) CT suggestive of aspiration PNA, treated as noted in hypoxia/PNA UTI: Klebsiella on culture, sensitive treated with Unasyn, plan to change to Augmentin on discharge complete 8 more days (16 doses) to cover for complicated UTI and the pneumonia (2) Hypoxia: Suspect aspiration event leading to acute hypoxic respiratory failure 2/[address]-C: No evidence for central pulmonary embolus, Patchy airspace opacities within the bilateral lower lobes with mucoid opacification of the left lower lobe bronchi. Therefore, this likely represents a pneumonia and may be secondary to aspiration, Multiple thoracic spine compression fractures. These are technically age indeterminate but likely old. Suspect metabolic encephalopathy due to aspiration pneumonia with frail baseline Zosyn narrowed to Unasyn, MRSA nare negative. Blood cultures 1/4 bottles for GPC, consistent with contaminant. Patient clinically improving and afebrile. -Tylenol PRN breathing well on room air for past few days (3) Hypotension: Chronic -Continue Midodrine (4) Anxiety disorder: Chronic -Ativan PRN with caution -Prozac daily (5) Dementia with behavioral disturbance: Patient somnolent at present -Haldol BID with Cogentin -Divalproex (6) Paranoid schizophrenia: As above, haldol, Divalproex and Cogentin (7) Aspiration pneumonia: - management as noted in hypoxia Unasyn, change to Augmentin on discharge for 7 day course (8) Hematuria: Patient with Escalera catheter placed on admission, patient self removed Escalera. Was replaced for tamponading effect, urine now draining clear light yellow urine Soft mitts placed for removal of medical equipment Escalera to be removed, [place] catheter to be placed. Meds can be discontinued once catheter removed. (9) UTI (urinary tract infection): Infected appearing urine on admission, gram-negative bacilli -- Klebsiella, sensitive to Unasyn as well as Augmentin, will use the latter on discharge Total Time Total Time Spent Total Time Spent (In Minutes): 31 Total Time Includes: Examination of the Patient, Discharge Planning and Medication Reconciliation Discharge Plan Discharge Items Patient Disposition: Transfer Group Home Fac Reason For Visit: UNRESPONSIVE Discharge Diagnosis: Encephalopathy due to UTI, pneumonia Condition on Discharge: Good Goals: complete course of Augmentin Activity: Resume your previous activity Non-emergency contact: Primary Care Provider Call non-emergency contact if: you have any medication questions, your symptoms worsen and you have a fever Follow-up/Referrals: [facility] [Outside] (one week) Diet: Regular Diet Texture: Pureed (blended smooth) Addtl Attending Provider Instructions: Augmentin: take twice a day for 16 more doses, start evening 07/16/21 to treat UTI and pneumonia see discharge summary for details Pending Studies at Discharge: No Stand-Alone Forms: My [facility] Skilled Items Patient informed of condition?: Yes DNR: No Discharge Level of Care: Skilled Communicable Disease: No Discharge Prognosis: Stable Lines: None Urinary Catheter: No Medications and DC Order Prescriptions: New amoxicillin-pot clavulanate [Augmentin] 875-125 mg tablet 1 tab PO BID Qty: 16 RF: 0 Continued acetaminophen [Tylenol] 325 mg Tablet 650 mg PO BID RF: 0 haloperidol 5 mg tablet 5 mg PO BID17 RF: 0 benztropine 0.5 mg Tablet 0.5 mg PO BID RF: 0 sennosides-docusate sodium [Senna with Docusate Sodium] 8.6-50 mg Tablet 1 tab-cap PO BID RF: 0 lorazepam [Ativan] 0.5 mg Tablet 0.5 mg PO TID RF: 0 divalproex [Depakote Sprinkles] 125 mg Capsule, Delayed Rel Sprinkle 500 mg PO TID@0900,1700,2100 RF: 0 midodrine 10 mg Tablet 10 mg PO TID RF: 0 cholecalciferol (vitamin D3) [Vitamin D3] 25 mcg (1,000 unit) Tablet 2,000 unit PO DAILY RF: 0 aspirin 81 mg Tablet,Chewable 81 mg PO BIDM RF: 0 fluoxetine 20 mg Capsule 20 mg PO DAILY RF: 0 melatonin 1 mg Tablet 1 mg PO QPM RF: 0 mirtazapine 7.5 mg Tablet 7.5 mg PO HS RF: 0 acetaminophen 325 mg tablet 650 mg PO Q6H PRN (Reason: PAIN/FEVER) RF: 0 Discharge Orders: Discharge Order (Routine); Ordered 07/16/21 Ordered By: Cresencio Osborn Admission Data Admit Date/Time: 07/13/21 03:15 Attending Provider: Cresencio Osborn Admit Provider: Wilma Underwood Primary Care Provider: Emilio Lopez Other Providers: Wilma Underwood Coding Level of Care Code D/C DAY MANAGEMENT >30 MINS Diagnoses AMS (altered mental status) R41.82 Altered mental status type: unspecified Hypoxia R09.02 Hypotension I95.9 Anxiety disorder F41.9 Dementia with behavioral disturbance F03.91 Paranoid schizophrenia F20.0 Aspiration pneumonia J69.0 Aspiration pneumonia type: unspecified Laterality: unspecified laterality Lung location: unspecified part of lung Hematuria R31.9 UTI (urinary tract infection) N39.0
[2021-07-16] MEDS: LORazepam 0.5 MG/1 ML VIAL IV SCH (10:30)
[2021-07-16] MEDS: ASPIRIN 81 MG CHEW PO SCH (10:49)
[2021-07-16] MEDS: DOCUSATE SODIUM/SENNA 50/8.6MG TAB PO SCH (10:50)
[2021-07-16] MEDS: FLUoxetine HCL 20 MG CAP PO SCH (10:51)
[2021-07-16] MEDS: haloperidoL 5 MG TAB PO SCH (10:51)
[2021-07-16] MEDS: BENZTROPINE MESYLATE 0.5 MG TAB PO SCH (10:51)
[2021-07-16] MEDS: DIVALPROEX SODIUM SPRINKLE 125 MG CAP PO SCH (10:52)
[2021-07-16] MEDS: ACETAMINOPHEN 325 MG TAB PO SCH (11:01)
== END 2021-07-16 15:00 | DRG 177 ==
LOC: ED 22:12 → SUATTDRO 07-13 03:15 → 2S 07-13 03:15 → 2N 07-14 19:55
DX: I45.10 Unspecified right bundle-branch block; B96.1 Klebsiella pneumoniae [K. pneumoniae] as the cause of diseases classified elsewhere; N39.0 Urinary tract infection, site not specified; Z79.82 Long term (current) use of aspirin; I95.9 Hypotension, unspecified; J96.01 Acute respiratory failure with hypoxia; F20.0 Paranoid schizophrenia; G93.41 Metabolic encephalopathy; J69.0 Pneumonitis due to inhalation of food and vomit; F03.91 Unspecified dementia, unspecified severity, with behavioral disturbance; F41.9 Anxiety disorder, unspecified; K21.9 Gastro-esophageal reflux disease without esophagitis; I44.4 Left anterior fascicular block; D64.9 Anemia, unspecified

== ENCOUNTER 2021-12-10 18:18 | Inpatient (IN) ==
[2021-12-10] MEDS ORDERED: MoRPHine SULFATE 2 MG/ML CARP IV STA ×2 (18:26→20:23)
[2021-12-10] MEDS ORDERED: ONDANSETRON INJ 2 MG/ML 2 ML VIAL IV STA (18:26)
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
[2021-12-10 18:58] LABS: Basophils # (auto) 0.01 K/uL (0-0.2); Basophils % (auto) 0.1 %; Hematocrit (blood only) 32.2 % (42-52); Hemoglobin 10.6 g/dL (14.0-18.0); Immature Granulocytes # (auto) 0.02 K/uL (0.00-0.02); Immature Granulocytes % (auto) 0.2 %; Lymphocytes # (auto) 1.04 K/uL (1.2-3.4); Lymphocytes % (auto) 12.4 %; Mean Corpuscular Hemoglobin 31.8 pg (25-34); Mean Corpuscular Hgb Conc 32.9 g/dL (32-36); Mean Corpuscular Volume 96.7 fL (80-100); Mean Platelet Volume 10.3 fL (7.4-10.4); Monocytes # (auto) 1.22 K/uL (0.11-0.59); Monocytes % (auto) 14.5 %; Neutrophils # (auto) 6.11 K/uL (1.4-6.5); Neutrophils % (auto) 72.8 %; Platelet Count 257 K/uL (130-400); RDW Coefficient of Variation 15.4 % (11.5-14.5); RDW Standard Deviation 54.1 fL (36.4-46.3); Red Blood Count 3.33 M/uL (4.7-6.1)
--- NOTE | 2021-12-10 19:17 | XRay Report ---
XR hip LT 2V w pelvis CLINICAL HISTORY: fall TECHNIQUE: 2 views of the left hip and single frontal view of the pelvis were obtained. Comparison: None available at the time of this dictation. FINDINGS: There is an intertrochanteric fracture of the left femur with mild apex lateral angulation and overri ding of fragments. There is a right intramedullary nail with peritonsillar calcification noted. Joint spaces are well-preserved. No soft tissue abnormality is seen. IMPRESSION: Left intratrochanteric fracture of the femur. ACT 112: Negative or not required by law. Electronically signed by: Cresencio Laboy M.D. 12/10/2021 7:16 PM
--- NOTE | 2021-12-10 19:21 | XRay Report ---
XR chest 1V portable CLINICAL HISTORY: LT HIP FX TECHNIQUE: Single frontal radiograph of the chest was obtained. Comparison: Comparison is made to chest one view 07/12/2021 FINDINGS: No lines and tubes are seen. The cardiomediastinal silhouette is normal. The lungs are clear. No evid ence of pleural effusion or pneumothorax. IMPRESSION: No acute chest disease. ACT 112: Negative or not required by law. Electronically signed by: Cresencio Laboy M.D. 12/10/2021 7:19 PM
[2021-12-10 19:31] LABS: Alanine Aminotransferase 12 U/L (7-52); Albumin Globulin Ratio 1.2 (0.9-2); Albumin Level 3.9 gm/dl (3.4-5.0); Alkaline Phosphatase 70 U/L (34-104); Anion Gap 7 (3-11); Aspartate Aminotransferase 21 U/L (13-39); Bilirubin,Total 0.4 mg/dl (0.2-1.0); Blood Urea Nitrogen 20 mg/dl (6-23); Carbon Dioxide 28 mmol/L (21-32); Chloride 100 mmol/L (98-107); Est GFR (African American) 109.1 ml/min; Est GFR (Non-African American) 94.1 ml/min; Globulin 3.2 gm/dl (2.5-4.0); Glucose 128 mg/dl (70-99); Lipase 36 U/L (11-82); Potassium 4.5 mmol/L (3.5-5.1); Sodium 135 mmol/L (136-145); Total Protein 7.1 gm/dl (6.0-8.3)
--- NOTE | 2021-12-10 19:35 | CT Scan Report ---
CT head/brain wo con CLINICAL HISTORY: fall Technique: Contiguous axial CT images of the head were acquired from the base of the skull to the nigel pat without intravenous contrast administration. Images were viewed in brain, subdural and bone [facility]. Automated dose lowering techniques and/or adjustment according to patient size were utilized for this exam. Comparison: Comparison is made to CT head 07/13/2021 Findings: Areas of decreased attenuation are present in the periventricular and subcortical white matter bilate rally consistent with small vessel ischemic disease. Generalized cerebral atrophy with commensurate e nlargement of the ventricles, sulci, and cisterns is also present. There is no acute intracranial hem orrhage or evidence of acute territorial infarction. No shift of the midline structures, mass effect, or extra-axial abnormalities are shown. Atherosclerotic calcifications are present in the intracran ial segments of the internal carotid arteries. Redemonstration of left frontal encephalomalacia and p ostsurgical changes. Imaged portions of the paranasal sinuses and mastoid air cells are clear. The orbits appear normal. There are no acute fractures of the calvaria or scalp swelling. Impression: No acute intracranial hemorrhage, skull fractures, or scalp swelling. ACT 112: Negative or not required by law. Electronically signed by: Cresencio Laboy M.D. 12/10/2021 7:34 PM
--- NOTE | 2021-12-10 19:37 | CT Scan Report ---
CT cervical spine wo con CLINICAL HISTORY: fall TECHNIQUE: Multidetector row helical CT of the cervical spine was performed without administration of intravenous contrast. Coronal and sagittal reformations were obtained. Automated dose lowering techn iques and/or adjustment according to patient size were utilized for this exam. Comparison: None available at the time of this dictation. FINDINGS: No acute fractures or subluxations are identified. The alignment is normal. Degenerative changes are seen in the visualized spine. Fusion of the C4-C5 vertebral bodies and articular facets noted. Prever tebral soft tissues are unremarkable. IMPRESSION: Degenerative changes without evidence of acute bony injury. ACT 112: Negative or not required by law. Electronically signed by: Cresencio Laboy M.D. 12/10/2021 7:36 PM
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
[2021-12-10] MEDS ORDERED: ONDANSETRON INJ 2 MG/ML 2 ML VIAL IV PRN (22:41)
[2021-12-10] MEDS ORDERED: POLYETHYLENE (MIRALAX) 17 GM PACK PO PRN (22:41)
[2021-12-10] MEDS ORDERED: ACETAMINOPHEN 325 MG TAB PO PRN (22:41)
[2021-12-10] MEDS ORDERED: bisacodyL 10 MG SUPP PR PRN (22:41)
[2021-12-10] MEDS ORDERED: NALOXONE HCL 0.4 MG/1 ML VIAL/CARP IV PRN (22:41)
[2021-12-10] MEDS ORDERED: MAGNESIUM HYDROXIDE SUSP 30 ML UDC PO PRN (22:41)
[2021-12-10] MEDS ORDERED: MoRPHine SULFATE 2 MG/ML CARP IV PRN (22:41)
[2021-12-10] MEDS ORDERED: DOCUSATE SODIUM 100 MG CAP PO PRN (22:41)
[2021-12-10] MEDS: DIVALPROEX SODIUM SPRINKLE/DEL-REL 125 MG CAP PO SCH (23:57)
[2021-12-10] MEDS: BENZTROPINE MESYLATE 0.5 MG TAB PO SCH (23:58)
[2021-12-10] MEDS: MIRTAZAPINE TAB 15 MG TAB PO SCH (23:58)
[2021-12-10] MEDS: DOCUSATE SODIUM/SENNA 50/8.6MG TAB PO SCH (23:58)
[2021-12-10] MEDS: LORazepam 0.5 MG TAB PO SCH (23:58)
[2021-12-10] MEDS: MIDODRINE HCL 10 MG TAB PO SCH (23:59)
[2021-12-10] MEDS: ACETAMINOPHEN 325 MG TAB PO SCH (23:59)
[2021-12-10] MEDS: LACTATED RINGER'S 1,000 ML IV SCH (23:59)
[2021-12-11 07:32] LABS: Basophils # (auto) 0.02 K/uL (0-0.2); Basophils % (auto) 0.2 %; Hematocrit (blood only) 33.5 % (42-52); Hemoglobin 10.8 g/dL (14.0-18.0); Immature Granulocytes # (auto) 0.01 K/uL (0.00-0.02); Immature Granulocytes % (auto) 0.1 %; Lymphocytes % (auto) 16.6 %; Mean Corpuscular Hemoglobin 31.3 pg (25-34); Mean Corpuscular Hgb Conc 32.2 g/dL (32-36); Mean Corpuscular Volume 97.1 fL (80-100); Mean Platelet Volume 10.5 fL (7.4-10.4); Monocytes # (auto) 1.36 K/uL (0.11-0.59); Monocytes % (auto) 16.1 %; Neutrophils # (auto) 5.64 K/uL (1.4-6.5); Platelet Count 256 K/uL (130-400); RDW Coefficient of Variation 15.6 % (11.5-14.5); Red Blood Count 3.45 M/uL (4.7-6.1); White Blood Count 8.43 K/uL (4.8-10.8)
[2021-12-11 07:42] LABS: Prothrombin Time 10.3 Seconds (9.0-12.0)
[2021-12-11 07:53] LABS: BUN Creatinine Ratio 22.5 (10-20); Calcium 9.4 mg/dl (8.5-10.1); Creatinine Clr Calc Pharmacy 78.6 ml/min; Est GFR (African American) 105.6 ml/min; Est GFR (Non-African American) 91.1 ml/min; Potassium 4.4 mmol/L (3.5-5.1)
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
--- NOTE | 2021-12-11 08:41 | Electrocardiogram Report ---
Test Reason : Blood Pressure : / mmHG Vent. Rate : 104 BPM Atrial Rate : 104 BPM P-R Int : 150 ms QRS Dur : 128 ms QT Int : 362 ms P-R-T Axes : 063 -32 022 degrees QTc Int : 476 ms Sinus tachycardia Right atrial enlargement Left anterior fascicular block Right bundle branch block Abnormal ECG When compared with ECG of 12-JUL-2021 22:25, Premature ventricular complexes are no longer Present Borderline Criteria for Inferior infarct no longer present Confirmed by Clarence Babb ([id number]) on 12/11/2021 8:41:06 AM Referred By: [facility] Confirmed By:Clarence Babb
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
[2021-12-11 09:21] LABS: Appearance Urine Clear (Clear); Bilirubin Urine Negative (Negative); Blood Urine Negative (Negative); Color Urine Yellow; Glucose Urine UA Negative (Negative); Ketones Urine Trace (Negative); Leukocyte Esterase Urine Negative (Negative); Nitrite Urine Negative (Negative); Protein Urine Negative (Negative); Specific Gravity Urine 1.016 (1.000-1.030); Urobilinogen Urine Negative (Negative); pH Urine 7.5 (4.5-7.5)
[2021-12-11] MEDS: ACETAMINOPHEN 325 MG TAB PO SCH ×2 (10:04→20:33)
[2021-12-11] MEDS: BENZTROPINE MESYLATE 0.5 MG TAB PO SCH ×2 (10:04→20:34)
[2021-12-11] MEDS: MIDODRINE HCL 10 MG TAB PO SCH ×3 (10:05→20:34)
[2021-12-11] MEDS: FLUoxetine HCL 20 MG CAP PO SCH (10:05)
[2021-12-11] MEDS: DOCUSATE SODIUM/SENNA 50/8.6MG TAB PO SCH ×2 (10:05→20:34)
[2021-12-11] MEDS: DIVALPROEX SODIUM SPRINKLE/DEL-REL 125 MG CAP PO SCH ×2 (10:07→20:37)
[2021-12-11] MEDS ORDERED: VALPROATE SOD 500 MG in DEXTROSE 5% 50 ML IV ONE (10:15)
[2021-12-11] MEDS: haloperidoL 5 MG TAB PO SCH ×2 (10:15→17:57)
[2021-12-11] MEDS: LORazepam 0.5 MG TAB PO SCH ×3 (10:15→20:34)
[2021-12-11] MEDS: LACTATED RINGER'S 1,000 ML IV SCH (10:15)
[2021-12-11] MEDS ORDERED: Nursing to Pharmacy Communication SCH (10:15)
[2021-12-11] MEDS ORDERED: MIDAZOLAM HCL 1 MG/ML 2ML VIAL ONE (12:20)
[2021-12-11] MEDS ORDERED: fentaNYL citrate 100 MCG/2 ML VIAL ONE (12:20)
[2021-12-11] MEDS ORDERED: ONDANSETRON INJ 2 MG/ML 2 ML VIAL ONE (12:25)
[2021-12-11] MEDS ORDERED: LIDOCAINE 2% 2 ML VIAL/AMP(20MG/ML) INFIL ONE (12:25)
[2021-12-11] MEDS ORDERED: PHENYLEPHRINE HCL 10 MG/ML VIAL ONE (12:25)
[2021-12-11] MEDS ORDERED: PROPOFOL IV EMULSION 10 MG/ML 20 ML VIAL IV ONE (12:25)
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
[2021-12-11] MEDS ORDERED: hydrALAZINE HCL 20 MG/ML VIAL IV ONE (13:47)
[2021-12-11] MEDS ORDERED: BUPIVACAINE 0.5 % 5 MG/1 ML PF 10ML VIAL ONE (13:52)
[2021-12-11] MEDS ORDERED: ceFAZolin 2000MG 2,000 MG/15 ML SYR IV ONE (13:53)
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
[2021-12-11] MEDS ORDERED: ceFAZolin 2,000 MG/15 ML IV PUSH IV ONE (13:54)
[2021-12-11] MEDS ORDERED: hydrALAZINE HCL 20 MG/ML VIAL IV PRN (13:58)
[2021-12-11] MEDS ORDERED: VALPROATE SOD 500 MG in DEXTROSE 5% 50 ML IV SCH (14:00)
[2021-12-11] MEDS ORDERED: ePHEDrine sulfate 50 MG/ML AMP IV PRN (14:14)
[2021-12-11] MEDS ORDERED: PHENYLEPHRINE 100MCG/ML 5ML SYR IV PRN (14:14)
[2021-12-11] MEDS ORDERED: ONDANSETRON INJ 2 MG/ML 2 ML VIAL IV PRN (14:14)
[2021-12-11] MEDS ORDERED: ATROPINE SULFATE 0.1 MG/ML 10ML SYR IV PRN (14:14)
[2021-12-11] MEDS ORDERED: LABETALOL HCL IV 5 MG/ML 20ML IV PRN (14:14)
[2021-12-11] MEDS ORDERED: HYDROmorphone INJ 1 MG/ML SYRINGE IV PRN (14:14)
[2021-12-11] MEDS ORDERED: fentaNYL citrate 100 MCG/2 ML VIAL IV PRN (14:14)
--- NOTE | 2021-12-11 15:47 | Post Operative Brief Note ---
Immediate Post Op Note v1 Date of Surgery December 11, 2021 Pre & Post Diagnosis Operation Date: 12/11/21 07:00 Pre-Op Diagnosis: Intertrochanteric Fracture of Left Hip Post-Op Diagnosis: Intertrochanteric Fracture of Left Hip I identified the patient and participated in the time-out.: Yes Procedure Operation Date: 12/11/21 07:00 Actual Procedures p Left Trochanteric Nail(Left) - Josue Booth DO Surgeon Josue Booth DO Rehab Office Coordinator none Estimated Blood Loss 100 Findings Consistent with Post-Op Diagnosis See operative note Complications None
--- NOTE | 2021-12-11 15:55 | Operative Report ---
Post Operative Report Pre & Post Diagnosis Operation Date: 12/11/21 07:00 Pre-Op Diagnosis: Intertrochanteric Fracture of Left Hip Post-Op Diagnosis: Intertrochanteric Fracture of Left Hip I identified the patient and participated in the time-out.: Yes Procedure Operation Date: 12/11/21 07:00 Actual Procedures p Left Trochanteric Nail(Left) - Josue Booth DO Surgeon Josue Booth DO Supervisor Locomotive none Estimated Blood Loss 100 Findings Consistent with Post-Op Diagnosis Displaced left intertrochanteric femur fracture Specimens None Anesthesia Type Spinal Complications None Indications 71-year-old male presenting with a displaced left intertrochanteric femur fracture after sustaining a ground-level fall in a nursing facility. Patient has a traumatic brain injury and is unable to provide informed consent. Fall occurred approximately 2 days prior and despite numerous attempts to contact the patient's family via phone we were unable to reach them. Therefore decision was made with hospital staff as well to proceed with surgical intervention in the best interest of the patient. Description of Procedure Patient was appropriate marked and identified in the preoperative holding area he was then taken back to the operative suite where he received spinal anesthesia. He received 2 g of Ancef per protocol. He was then transferred over to the manual fracture table and using the assistance of fluoroscopy the fracture was were then reduced to a stable position. Patient was then prepped and draped in the standard orthopedic fashion and timeout was then performed. A 3 cm incision superior to the greater trochanter was then made and carried out down through the subcutaneous tissue and IT band/gluteal fascia. A threaded guidewire was then introduced into the tip of the trochanter and advanced into the medullary canal and confirmed on AP and lateral radiographs. 70 mm opening reamer was then used to open the proximal aspect of the canal. A ball-tipped guidewire was then placed through the proximal opening down to the canal distally and the length of the canal was measured and determined to be 400 mm. Then starting with an 8.5 mm reamer the canal was sequentially reamed up to a 12.5 mm reamer to accommodate an 11 mm nail. An 11 mm x 400 mm 130 degree nail was then inserted into the medullary canal. Proximal outrigger was then attached and triple sleeve guide and was placed over the position of the lag screw skin incision was made and carried out through the subcutaneous tissue and IT band fascia down to bone. The triple sleeve guide was then advanced down to bone and a threaded guidewire was drilled into the center of the femoral head and a center center position on AP and lateral radiographs. A lateral cortical reamer was first used and then the tapered reamer was set to 100 mm and reamed under fluoroscopy. 100 mm x 11 mm helical blade was then impacted into the femoral head and position was confirmed on AP and lateral radiographs. The nail was then lacked statically at the proximal aspect after it was slightly compressed. Outrigger was then removed and radiographs were obtained demonstrating satisfactory reduction and position of the implant proximally. Attention was then turned to placement of the distal interlock. Using perfect shinnecock fluoroscopy the oblong hole of the implant was then drilled. Depth gauge was used to measure size of the screw and a 5 mm x 52 mm locking screw was then placed and noted to have good bicortical purchase. Radiographs were obtained demonstrating satisfactory placement of the implant and screws. Wounds were then copiously irrigated using normal saline solution and then ITB and fascia was closed using 1-0 Vicryl followed by 2-0 Vicryl for the subcutaneous tissue and jamee for the skin. Sterile Silverlon dressing was then placed over the proximal incisions and Xeroform 4 x 4 and OpSite was placed over the distal incision. The patient tolerated procedure well was taken to the recovery room in hemodynamically stable condition. Implants: Synthes 11 mm x 400 mm left 130 degree TFN, 11 mm x 100 mm helical blade, 5 mm x 52 mm locking screw I attest to the content of the Intraoperative Record and any orders documented therein. Any exceptions are noted below.
--- NOTE | 2021-12-11 16:03 | Fluoroscopy Report ---
FL hip LT 2-3V CLINICAL HISTORY: LT TROCH NAIL COMPARISON STUDY: Pelvis and left hip radiographs December 10, 2021. FLUOROSCOPY TIME: 133.6 seconds. FLUOROSCOPIC IMAGES: 5 FINDINGS: Fluoroscopy was provided during internal fixation of the intertrochanteric fracture of the left femur with trochanteric nail. Fracture alignment has significantly improved and appears near lucy tomic. Distal screw is in place. Hardware is intact. There are no unexpected radiopaque foreign re s. IMPRESSION: Fluoroscopy provided during internal fixation of the intertrochanteric fracture of the l eft femur. ACT 112: Negative or not required by law. Electronically signed by: Andre Ocasio M.D. 12/11/2021 4:02 PM
--- NOTE | 2021-12-11 17:03 | Anesthesiology Progress Note ---
Date of Service December 11, 2021 Anesthesia Post Procedure Vital Signs Vital Signs: Temp Pulse Pulse Pulse Pulse Resp BP 12/11/21 16:50 36.4 C L 98 H 14 12/11/21 16:40 99 H 14 12/11/21 16:30 95 H 14 12/11/21 16:20 99 H 14 12/11/21 16:10 36.4 C L 98 H 14 12/11/21 16:00 94 H 14 12/11/21 15:50 91 H 12 12/11/21 15:44 36.2 C L 93 H 12 12/11/21 13:35 105 H 18 12/11/21 07:56 36.6 C 101 H 16 12/10/21 22:41 12/10/21 22:40 36.9 C 110 H 16 12/10/21 22:35 36.9 C 114 H 20 12/10/21 20:00 103 H 15 167/101 H 12/10/21 19:30 98 H 14 12/10/21 19:01 109 H 24 12/10/21 19:00 114 H 18 142/113 H 12/10/21 18:50 100 H 17 12/10/21 18:42 103 H 16 158/103 H 12/10/21 18:40 104 H 15 12/10/21 18:30 102 H 18 12/10/21 18:27 104 H 19 12/10/21 18:10 36.8 C 105 H 20 165/110 H BP BP Pulse Ox Pulse Ox 12/11/21 16:50 96/62 L 97 12/11/21 16:40 88/54 L 98 12/11/21 16:30 91/56 L 98 12/11/21 16:20 92/48 L 99 12/11/21 16:10 97/67 L 96 12/11/21 16:00 98/63 L 98 12/11/21 15:50 77/51 L 96 12/11/21 15:44 83/47 L 98 12/11/21 13:35 151/98 H 96 12/11/21 07:56 138/94 97 12/10/21 22:41 98 12/10/21 22:40 142/85 H 98 12/10/21 22:35 142/85 H 98 12/10/21 20:00 97 12/10/21 19:30 97 01/11/22 19:01 96 12/10/21 19:00 97 12/10/21 18:50 97 12/10/21 18:42 97 12/10/21 18:40 97 12/10/21 18:30 97 12/10/21 18:27 97 12/10/21 18:10 97 Transfer of Care Handoff Completed per policy Notes Mental Status: alert / awake / arousable Patient Amnestic to Procedure: Yes Nausea / Vomiting: adequately controlled Pain: adequately controlled Airway Patency, RR, SpO2: stable & adequate BP & HR: stable & adequate Hydration State: stable & adequate Neuraxial Anesthesia: was administered and sensory block is resolving Anesthetic Complications: no major complications apparent and Pt Satisfied with anesthetic care Notes: The patient is awake and comfortable at his baseline. He was able to move his feet on command.
[2021-12-11] MEDS ORDERED: oxyCODONE HCL IR 5 MG TAB (IMMEDIATE RELEASE) PO PRN (17:09)
[2021-12-11] MEDS ORDERED: SODIUM CHLORIDE 0.9% 1000ML 250 ML IV ONE (17:29)
[2021-12-11] MEDS: SODIUM CHLORIDE 0.9% 1000ML 1,000 ML IV SCH (17:35)
[2021-12-11] MEDS: MIRTAZAPINE TAB 15 MG TAB PO SCH (20:33)
[2021-12-11] MEDS: ASPIRIN 81 MG ECTAB PO SCH (20:34)
[2021-12-11] MEDS: ceFAZolin 1000MG 1,000 MG/7.5 ML SYR IV SCH (22:31)
[2021-12-12] MEDS: SODIUM CHLORIDE 0.9% 1000ML 1,000 ML IV SCH (03:05)
[2021-12-12] MEDS: ceFAZolin 1000MG 1,000 MG/7.5 ML SYR IV SCH (05:51)
[2021-12-12 07:46] LABS: Hematocrit (blood only) 23.9 % (42-52); Hemoglobin 7.7 g/dL (14.0-18.0); Mean Corpuscular Hemoglobin 31.7 pg (25-34); Mean Corpuscular Hgb Conc 32.2 g/dL (32-36); Mean Corpuscular Volume 98.4 fL (80-100); Mean Platelet Volume 9.9 fL (7.4-10.4); Platelet Count 184 K/uL (130-400); RDW Coefficient of Variation 15.8 % (11.5-14.5); RDW Standard Deviation 57.1 fL (36.4-46.3); Red Blood Count 2.43 M/uL (4.7-6.1); White Blood Count 5.61 K/uL (4.8-10.8)
[2021-12-12 08:02] LABS: Basophils # (auto) 0.02 K/uL (0-0.2); Basophils % (auto) 0.4 %; Eosinophils # (auto) 0.01 K/uL (0-0.5); Eosinophils % (auto) 0.2 %; Immature Granulocytes # (auto) 0.01 K/uL (0.00-0.02); Immature Granulocytes % (auto) 0.2 %; Lymphocytes # (auto) 1.17 K/uL (1.2-3.4); Lymphocytes % (auto) 20.9 %; Monocytes # (auto) 1.02 K/uL (0.11-0.59); Monocytes % (auto) 18.2 %; Neutrophils # (auto) 3.38 K/uL (1.4-6.5); Neutrophils % (auto) 60.1 %
[2021-12-12 08:04] LABS: Calcium 8.4 mg/dl (8.5-10.1); Creatinine Clr Calc Pharmacy 76.7 ml/min; Est GFR (African American) 104.6 ml/min; Est GFR (Non-African American) 90.2 ml/min; Potassium 4.2 mmol/L (3.5-5.1)
[2021-12-12] MEDS: ACETAMINOPHEN 325 MG TAB PO SCH ×2 (08:15→20:19)
[2021-12-12] MEDS: ASPIRIN 81 MG ECTAB PO SCH ×2 (08:16→20:21)
[2021-12-12] MEDS: BENZTROPINE MESYLATE 0.5 MG TAB PO SCH ×2 (08:17→20:20)
[2021-12-12] MEDS: DIVALPROEX SODIUM SPRINKLE/DEL-REL 125 MG CAP PO SCH ×3 (08:18→20:23)
[2021-12-12] MEDS: haloperidoL 5 MG TAB PO SCH ×2 (08:20→17:44)
[2021-12-12] MEDS: FLUoxetine HCL 20 MG CAP PO SCH (08:20)
[2021-12-12] MEDS: MIDODRINE HCL 10 MG TAB PO SCH ×3 (08:21→20:20)
[2021-12-12 08:30] LABS: Folate (Folic Acid) 16.75 ng/ml (>5.38)
[2021-12-12] MEDS: LORazepam 0.5 MG TAB PO SCH ×3 (08:33→20:19)
[2021-12-12] MEDS ORDERED: SODIUM CHLORIDE 0.9% 250 ML IV PRN ×2 (08:50→09:28)
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
--- NOTE | 2021-12-12 09:33 | Orthopedic Progress Note ---
Date of Service December 12, 2021 Assessment & Plan (1) Intertrochanteric fracture of left hip: Plan: POD 1 PT/OT as able. WBAT. DVT proph - ASA bid, SCD's Pain management as written. DC planning - return to [facility] Admission and Anticipated Discharge Date Admission Date: December 10, 2021 Subjective POD 1 s/p Left TFN Pt awake. Answering some questions appropriately. Denies pain in the operative hip this AM. Denies CP,SOB. Physical Exam Physical Exam: Dressings C/D/I. Thigh soft, Calves soft and appear NT. Results & Data ([facility]) Vital Signs (Past 12 Hours) Vital Signs Temp Pulse Resp BP Pulse Ox 12/12/21 07:20 36.6 C 122 H 14 136/77 94 12/12/21 04:00 36.6 C 100 H 18 125/66 93 12/11/21 22:25 36.4 C L 97 H 18 101/61 96 Laboratory Results Laboratory Results WBC 5.61 K/uL (4.8-10.8) 12/12/21 07:14 RBC 2.43 M/uL (4.7-6.1) L 12/12/21 07:14 Hgb 7.7 g/dL (14.0-18.0) L D 12/12/21 07:14 Hct 23.9 % (42-52) L 12/12/21 07:14 MCV 98.4 fL (80-100) 12/12/21 07:14 MCH 31.7 pg (25-34) 12/12/21 07:14 MCHC 32.2 g/dL (32-36) 12/12/21 07:14 RDW Std Deviation 57.1 fL (36.4-46.3) H 12/12/21 07:14 RDW Coeff of [place]cell[place] 15.8 % (11.5-14.5) H 12/12/21 07:14 Plt Count 184 K/uL (130-400) 12/12/21 07:14 MPV 9.9 fL (7.4-10.4) 12/12/21 07:14 Immature Gran % (Auto) 0.2 % 12/12/21 07:14 Neut % (Auto) 60.1 % 12/12/21 07:14 Lymph % (Auto) 20.9 % 12/12/21 07:14 [place] % (Auto) 18.2 % 12/12/21 07:14 Eos % (Auto) 0.2 % 12/12/21 07:14 Baso % (Auto) 0.4 % 12/12/21 07:14 Neut # (Auto) 3.38 K/uL (1.4-6.5) 12/12/21 07:14 Lymph # (Auto) 1.17 K/uL (1.2-3.4) L 12/12/21 07:14 [place] # (Auto) 1.02 K/uL (0.11-0.59) H 12/12/21 07:14 Eos # (Auto) 0.01 K/uL (0-0.5) 12/12/21 07:14 Baso # (Auto) 0.02 K/uL (0-0.2) 12/12/21 07:14 Immature Gran # (Auto) 0.01 K/uL (0.00-0.02) 12/12/21 07:14 PT 10.3 Seconds (9.0-12.0) 12/11/21 07:19 INR 1.0 (0.9-1.1) 12/11/21 07:19 Sodium 141 mmol/L (136-145) 12/12/21 07:14 Potassium 4.2 mmol/L (3.5-5.1) 12/12/21 07:14 Chloride 107 mmol/L (98-107) 12/12/21 07:14 Carbon Dioxide 29 mmol/L (21-32) 12/12/21 07:14 Anion Gap 5 (3-11) 12/12/21 07:14 BUN 18 mg/dl (6-23) 12/12/21 07:14 Creatinine 0.82 mg/dl (0.6-1.4) 12/12/21 07:14 Est Cr Clr Drug Dosing 76.7 ml/min 12/12/21 07:14 Est GFR ( Amer) 104.6 ml/min 12/12/21 07:14 Est GFR (Non-Af Amer) 90.2 ml/min 12/12/21 07:14 BUN/Creatinine Ratio 22.0 (10-20) H 12/12/21 07:14 Glucose 90 mg/dl (70-99) 12/12/21 07:14 Calcium 8.4 mg/dl (8.5-10.1) L 12/12/21 07:14 Total Bilirubin 0.4 mg/dl (0.2-1.0) 12/10/21 18:40 AST 21 U/L (13-39) 12/10/21 18:40 ALT 12 U/L (7-52) 12/10/21 18:40 Alkaline Phosphatase 70 U/L (34-104) 12/10/21 18:40 Total Protein 7.1 gm/dl (6.0-8.3) 12/10/21 18:40 Albumin 3.9 gm/dl (3.4-5.0) 12/10/21 18:40 Globulin 3.2 gm/dl (2.5-4.0) 12/10/21 18:40 Albumin/Globulin Ratio 1.2 (0.9-2) 12/10/21 18:40 Lipase 36 U/L (11-82) 12/10/21 18:40 Vitamin B12 536 pg/ml (193-986) 12/12/21 07:14 Folate 16.75 ng/ml (>5.38) 12/12/21 07:14 Urine Color Yellow 12/11/21 09:13 Urine Appearance Clear (Clear) 12/11/21 09:13 Urine pH 7.5 (4.5-7.5) 12/11/21 09:13 Ur Specific [place] 1.016 (1.000-1.030) 12/11/21 09:13 Urine Protein Negative (Negative) 12/11/21 09:13 Urine Glucose (UA) Negative (Negative) 12/11/21 09:13 Urine Ketones Trace (Negative) H 12/11/21 09:13 Urine Blood Negative (Negative) 12/11/21 09:13 Urine Nitrite Negative (Negative) 12/11/21 09:13 Urine Bilirubin Negative (Negative) 12/11/21 09:13 Urine Urobilinogen Negative (Negative) 12/11/21 09:13 Ur Leukocyte Esterase Negative (Negative) 12/11/21 09:13 Nasal Screen MRSA (PCR) Positive (Negative) A 12/11/21 00:30 Valproic Acid 58 mcg/ml (50-100) 12/10/21 18:40 SARS-CoV-2, RNA, NAAT NEGATIVE (NEGATIVE) 12/10/21 Unknown Blood Type A Positive 12/10/21 22:44 Antibody Screen NEGATIVE 12/10/21 22:44 Crossmatch See Detail 12/10/21 22:44 Impressions Hip/Pelvis X-Ray 12/10/21 18:26 XR hip LT 2V w pelvis CLINICAL HISTORY: fall TECHNIQUE: 2 views of the left hip and single frontal view of the pelvis were obtained. Comparison: None available at the time of this dictation. FINDINGS: There is an intertrochanteric fracture of the left femur with mild apex lateral angulation and overriding of fragments. There is a right intramedullary nail with peritonsillar calcification noted. Joint spaces are well-preserved. No soft tissue abnormality is seen. IMPRESSION: Left intratrochanteric fracture of the femur. ACT 112: Negative or not required by law. Electronically signed by: Cresencio Laboy M.D. 12/10/2021 7:16 PM Hip X-Ray 12/11/21 13:30 FL hip LT 2-3V CLINICAL HISTORY: LT TROCH NAIL COMPARISON STUDY: Pelvis and left hip radiographs December 10, 2021. FLUOROSCOPY TIME: 133.6 seconds. FLUOROSCOPIC IMAGES: 5 FINDINGS: Fluoroscopy was provided during internal fixation of the intertrochanteric fracture of the left femur with trochanteric nail. Fracture alignment has significantly improved and appears near anatomic. Distal screw is in place. Hardware is intact. There are no unexpected radiopaque foreign bodies. IMPRESSION: Fluoroscopy provided during internal fixation of the intertrochanteric fracture of the left femur. ACT 112: Negative or not required by law. Electronically signed by: Andre Ocasio M.D. 12/11/2021 4:02 PM
[2021-12-12] MEDS ORDERED: TAMSULOSIN HCL 0.4 MG CAP PO ONE (10:08)
[2021-12-12] MEDS ORDERED: MAGNESIUM SULFATE / D5W 1 GM/100 ML BAG IV ONE (11:00)
[2021-12-12] MEDS ORDERED: ACETAMINOPHEN 500 MG TAB PO ONE (11:08)
[2021-12-12] MEDS: DOCUSATE SODIUM/SENNA 50/8.6MG TAB PO SCH ×2 (12:08→20:19)
[2021-12-12] MEDS ORDERED: POLYETHYLENE (MIRALAX) 17 GM PACK PO SCH (13:30)
--- NOTE | 2021-12-12 14:40 | Electrocardiogram Report ---
Test Reason : Blood Pressure : / mmHG Vent. Rate : 118 BPM Atrial Rate : 118 BPM P-R Int : 156 ms QRS Dur : 128 ms QT Int : 498 ms P-R-T Axes : 074 -35 059 degrees QTc Int : 698 ms Sinus tachycardia with frequent Premature ventricular complexes Left axis deviation Right bundle branch block Cannot rule out Old Inferior infarct Abnormal ECG When compared with ECG of 11-DEC-2021 08:11, Premature ventricular complexes are now Present Confirmed by Clarence Babb ([id number]) on 12/12/2021 2:40:22 PM Referred By: [facility] Confirmed By:Clarence Babb
[2021-12-12 16:56] LABS: Hematocrit (blood only) 27.7 % (42-52); Hemoglobin 9.1 g/dL (14.0-18.0); Mean Corpuscular Hemoglobin 31.4 pg (25-34); Mean Corpuscular Hgb Conc 32.9 g/dL (32-36); Mean Corpuscular Volume 95.5 fL (80-100); Platelet Count 181 K/uL (130-400); RDW Standard Deviation 59.7 fL (36.4-46.3); White Blood Count 5.26 K/uL (4.8-10.8)
[2021-12-12 17:18] LABS: BUN Creatinine Ratio 22.2 (10-20); Calcium 8.1 mg/dl (8.5-10.1); Creatinine Clr Calc Pharmacy 77.7 ml/min; Est GFR (African American) 105.1 ml/min; Est GFR (Non-African American) 90.7 ml/min
[2021-12-12] MEDS: MIRTAZAPINE TAB 15 MG TAB PO SCH (20:20)
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
[2021-12-13 08:52] LABS: Hematocrit (blood only) 28.2 % (42-52); Hemoglobin 9.8 g/dL (14.0-18.0); Mean Corpuscular Hemoglobin 32.7 pg (25-34); Mean Corpuscular Hgb Conc 34.8 g/dL (32-36); Platelet Count 198 K/uL (130-400); RDW Coefficient of Variation 17.1 % (11.5-14.5); White Blood Count 6.48 K/uL (4.8-10.8)
[2021-12-13 09:14] LABS: Albumin Globulin Ratio 1.1 (0.9-2); Albumin Level 3.1 gm/dl (3.4-5.0); BUN Creatinine Ratio 23.1 (10-20); Bilirubin,Total 0.6 mg/dl (0.2-1.0); Calcium 8.2 mg/dl (8.5-10.1); Creatinine Clr Calc Pharmacy 96.8 ml/min; Est GFR (African American) 115.1 ml/min; Est GFR (Non-African American) 99.3 ml/min; Globulin 2.8 gm/dl (2.5-4.0); Potassium 3.9 mmol/L (3.5-5.1); Total Protein 5.9 gm/dl (6.0-8.3)
[2021-12-13] MEDS: DIVALPROEX SODIUM SPRINKLE/DEL-REL 125 MG CAP PO SCH ×3 (09:31→23:05)
[2021-12-13] MEDS: ASPIRIN 81 MG ECTAB PO SCH ×2 (09:32→23:04)
[2021-12-13] MEDS: haloperidoL 5 MG TAB PO SCH ×2 (09:32→17:29)
[2021-12-13] MEDS: MIDODRINE HCL 10 MG TAB PO SCH ×3 (09:32→23:05)
[2021-12-13] MEDS: BENZTROPINE MESYLATE 0.5 MG TAB PO SCH ×2 (09:32→23:04)
[2021-12-13] MEDS: FLUoxetine HCL 20 MG CAP PO SCH (09:33)
[2021-12-13] MEDS: POLYETHYLENE (MIRALAX) 17 GM PACK PO SCH ×2 (09:34→23:00)
--- NOTE | 2021-12-13 09:34 | Orthopedic Progress Note ---
Date of Service December 13, 2021 Assessment & Plan (1) Intertrochanteric fracture of left hip: Plan: POD 2 PT/OT as able. WBAT. DVT proph - ASA bid, SCD's Pain management as written. DC planning - return to [facility] Ortho will sign off at this time. Instructions placed in DC section. Please call with any questions. Admission and Anticipated Discharge Date Admission Date: December 10, 2021 Subjective POD 2 Pt awake, alert. States he's having some pain off and on in the operative hip. No other complaints at this time. Physical Exam Physical Exam: Dressings C/D/I. Calves soft, NT. Toes pink and warm. Results & Data ([facility]) Vital Signs (Past 12 Hours) Vital Signs Temp Pulse Resp BP Pulse Ox 12/13/21 07:38 36.7 C 113 H 16 149/84 H 96 12/12/21 22:30 36.8 C 102 H 16 121/71 95 Laboratory Results Laboratory Results WBC 6.48 K/uL (4.8-10.8) 12/13/21 08:22 RBC 3.00 M/uL (4.7-6.1) L 12/13/21 08:22 Hgb 9.8 g/dL (14.0-18.0) L 12/13/21 08:22 Hct 28.2 % (42-52) L 12/13/21 08:22 MCV 94.0 fL (80-100) 12/13/21 08:22 MCH 32.7 pg (25-34) 12/13/21 08: MCHC 34.8 g/dL (32-36) 12/13/21 08:22 RDW Std Deviation 59.0 fL (36.4-46.3) H 12/13/21 08:22 RDW Coeff of Marcellus 17.1 % (11.5-14.5) H 12/13/21 08:22 Plt Count 198 K/uL (130-400) 12/13/21 08:22 MPV 10.0 fL (7.4-10.4) 12/13/21 08:22 Immature Gran % (Auto) 0.2 % 12/12/21 07:14 Neut % (Auto) 60.1 % 12/12/21 07:14 Lymph % (Auto) 20.9 % 12/12/21 07:14 Dixie % (Auto) 18.2 % 12/12/21 07:14 Eos % (Auto) 0.2 % 12/12/21 07:14 Baso % (Auto) 0.4 % 12/12/21 07:14 Neut # (Auto) 3.38 K/uL (1.4-6.5) 12/12/21 07:14 Lymph # (Auto) 1.17 K/uL (1.2-3.4) L 12/12/21 07:14 Dixie # (Auto) 1.02 K/uL (0.11-0.59) H 12/12/21 07:14 Eos # (Auto) 0.01 K/uL (0-0.5) 12/12/21 07:14 Baso # (Auto) 0.02 K/uL (0-0.2) 12/12/21 07:14 Immature Gran # (Auto) 0.01 K/uL (0.00-0.02) 12/12/21 07:14 PT 10.3 Seconds (9.0-12.0) 12/11/21 07:19 INR 1.0 (0.9-1.1) 12/11/21 07:19 Sodium 137 mmol/L (136-145) 12/13/21 08:22 Potassium 3.9 mmol/L (3.5-5.1) 12/13/21 08:22 Chloride 104 mmol/L (98-107) 12/13/21 08:22 Carbon Dioxide 26 mmol/L (21-32) 12/13/21 08:22 Anion Gap 7 (3-11) 12/13/21 08:22 BUN 15 mg/dl (6-23) 12/13/21 08:22 Creatinine 0.65 mg/dl (0.6-1.4) 12/13/21 08:22 Est Cr Clr Drug Dosing 96.8 ml/min 12/13/21 08:22 Est GFR ( Amer) 115.1 ml/min 12/13/21 08:22 Est GFR (Non-Af Amer) 99.3 ml/min 12/13/21 08:22 BUN/Creatinine Ratio 23.1 (10-20) H 12/13/21 08:22 Glucose 93 mg/dl (70-99) 12/13/21 08:22 Calcium 8.2 mg/dl (8.5-10.1) L 12/13/21 08:22 Magnesium 1.7 mg/dl (1.7-2.4) 12/12/21 07:14 Total Bilirubin 0.6 mg/dl (0.2-1.0) 12/13/21 08:22 AST 15 U/L (13-39) 12/13/21 08:22 ALT 7 U/L (7-52) 12/13/21 08:22 Alkaline Phosphatase 53 U/L (34-104) 12/13/21 08:22 Total Protein 5.9 gm/dl (6.0-8.3) L 12/13/21 08:22 Albumin 3.1 gm/dl (3.4-5.0) L 12/13/21 08:22 Globulin 2.8 gm/dl (2.5-4.0) 12/13/21 08:22 Albumin/Globulin Ratio 1.1 (0.9-2) 12/13/21 08:22 Lipase 36 U/L (11-82) 12/10/21 18:40 Vitamin B12 536 pg/ml (193-986) 12/12/21 07:14 Folate 16.75 ng/ml (>5.38) 12/12/21 07:14 Urine Color Yellow 12/11/21 09:13 Urine Appearance Clear (Clear) 12/11/21 09:13 Urine pH 7.5 (4.5-7.5) 12/11/21 09:13 Ur Specific Onia 1.016 (1.000-1.030) 12/11/21 09:13 Urine Protein Negative (Negative) 12/11/21 09:13 Urine Glucose (UA) Negative (Negative) 12/11/21 09:13 Urine Ketones Trace (Negative) H 12/11/21 09:13 Urine Blood Negative (Negative) 12/11/21 09:13 Urine Nitrite Negative (Negative) 12/11/21 09:13 Urine Bilirubin Negative (Negative) 12/11/21 09:13 Urine Urobilinogen Negative (Negative) 12/11/21 09:13 Ur Leukocyte Esterase Negative (Negative) 12/11/21 09:13 Nasal Screen MRSA (PCR) Positive (Negative) A 12/11/21 00:30 Valproic Acid 58 mcg/ml (50-100) 12/10/21 18:40 SARS-CoV-2, RNA, NAAT NEGATIVE (NEGATIVE) 12/10/21 Unknown Blood Type A Positive 12/10/21 22:44 Antibody Screen NEGATIVE 12/10/21 22:44 Crossmatch See Detail 12/10/21 22:44
[2021-12-13] MEDS ORDERED: MAGNESIUM SULFATE / D5W 1 GM/100 ML BAG IV ONE (09:45)
[2021-12-13] MEDS: LORazepam 0.5 MG TAB PO SCH ×3 (10:39→23:05)
[2021-12-13] MEDS: ACETAMINOPHEN 325 MG TAB PO SCH ×2 (10:39→23:05)
[2021-12-13] MEDS: DOCUSATE SODIUM/SENNA 50/8.6MG TAB PO SCH ×2 (10:39→23:05)
[2021-12-13] MEDS ORDERED: SODIUM CHLORIDE 0.9% 500 ML IV SCH (11:30)
--- NOTE | 2021-12-13 14:40 | XRay Report ---
XR chest 1V portable CLINICAL HISTORY: Vomiting. Tachycardia.. COMPARISON STUDY: 12/10/2021 TECHNIQUE: 1 view of the chest FINDINGS: Single frontal view of the chest demonstrates the cardiomediastinal silhouette to be within normal li mits. The lungs are clear of alveolar opacities. There is no evidence for pleural effusion. There is no evidence for vascular congestion. There is no acute osseous pathology. IMPRESSION: No acute cardiopulmonary disease. ACT 112: Negative or not required by law. Electronically signed by: Shawn Braun M.D. 12/13/2021 2:38 PM
--- NOTE | 2021-12-13 14:43 | XRay Report ---
KUB HISTORY: Acute nausea with emesis ?emesis COMPARISON: Chest radiograph of same day FINDINGS: Nonobstructive bowel gas pattern. Moderate fecal retention. Renal shadows are obscured by b owel gas. No renal calculi. No ureteral calculi. No pneumoperitoneum or pneumatosis. Degenerative ch anges of the thoracolumbar spine with several compression deformities. ORIF changes of the proximal f emora bilaterally. Heterotopic ossifications adjacent to the proximal right femur. Cardiomegaly. IMPRESSION: Nonobstructive bowel gas pattern. ACT 112: Negative or not required by law. The above report was generated using voice recognition software. It may contain grammatical, syntax o r spelling errors. Electronically signed by: Josue Leo M.D. 12/13/2021 2:41 PM
[2021-12-13] MEDS ORDERED: bisacodyL 5 MG TABEC PO PRN (16:12)
[2021-12-13] MEDS: MIRTAZAPINE TAB 15 MG TAB PO SCH (23:03)
[2021-12-14] MEDS ORDERED: METOPROLOL TARTRATE 25 MG TAB PO SCH ×2 (09:00)
--- NOTE | 2021-12-14 09:08 | Hospitalist Progress Note ---
Date of Service December 14, 2021 Assessment & Plan Admission and Anticipated Discharge Date Admission Date: December 10, 2021 Results & Data Results & Data ([facility]) Vital Signs (Past 12 Hours) Vital Signs Temp Pulse Resp BP Pulse Ox 12/14/21 07:00 36.5 C 106 H 18 146/77 H 93 12/13/21 23:00 36.8 C 110 H 15 131/80 92 PG Care Time/CCT Total # of Minutes Spent Total Time Spent with Patient: Total time spent is greater than 50% in coordination of care (as documented) at patient's floor/unit and/or counseling patient: Coding
[2021-12-14] MEDS: DIVALPROEX SODIUM SPRINKLE/DEL-REL 125 MG CAP PO SCH (09:18)
[2021-12-14] MEDS: FLUoxetine HCL 20 MG CAP PO SCH (09:19)
[2021-12-14] MEDS: MIDODRINE HCL 10 MG TAB PO SCH ×2 (09:19→13:31)
[2021-12-14] MEDS: DOCUSATE SODIUM/SENNA 50/8.6MG TAB PO SCH (09:19)
[2021-12-14] MEDS: BENZTROPINE MESYLATE 0.5 MG TAB PO SCH (09:39)
[2021-12-14] MEDS: haloperidoL 5 MG TAB PO SCH (09:40)
[2021-12-14] MEDS: ASPIRIN 81 MG ECTAB PO SCH (09:40)
[2021-12-14] MEDS: POLYETHYLENE (MIRALAX) 17 GM PACK PO SCH (09:41)
[2021-12-14] MEDS: ACETAMINOPHEN 325 MG TAB PO SCH (09:44)
[2021-12-14] MEDS: LORazepam 0.5 MG TAB PO SCH ×2 (09:44→13:32)
[2021-12-14 11:36] LABS: Hematocrit (blood only) 28.1 % (42-52); Hemoglobin 9.2 g/dL (14.0-18.0); Mean Corpuscular Hemoglobin 31.1 pg (25-34); Mean Corpuscular Hgb Conc 32.7 g/dL (32-36); Mean Corpuscular Volume 94.9 fL (80-100); Mean Platelet Volume 9.8 fL (7.4-10.4); Platelet Count 252 K/uL (130-400); RDW Coefficient of Variation 16.4 % (11.5-14.5); RDW Standard Deviation 56.7 fL (36.4-46.3); Red Blood Count 2.96 M/uL (4.7-6.1); White Blood Count 10.15 K/uL (4.8-10.8)
[2021-12-14 12:02] LABS: BUN Creatinine Ratio 23.4 (10-20); Calcium 8.6 mg/dl (8.5-10.1); Creatinine Clr Calc Pharmacy 98.3 ml/min; Est GFR (African American) 115.8 ml/min; Est GFR (Non-African American) 99.9 ml/min; Magnesium 1.9 mg/dl (1.7-2.4); Potassium 4.1 mmol/L (3.5-5.1)
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
== END 2021-12-14 16:59 | DRG 481 ==
LOC: ED 18:18 → 3N 21:00 → SUATTDRO 21:00 → 3N 22:16 → 3W 12-11 02:22
DX: S06.9X0S Unspecified intracranial injury without loss of consciousness, sequela; N40.0 Benign prostatic hyperplasia without lower urinary tract symptoms; S72.142A Displaced intertrochanteric fracture of left femur, initial encounter for closed fracture; K21.9 Gastro-esophageal reflux disease without esophagitis; F41.9 Anxiety disorder, unspecified; D62 Acute posthemorrhagic anemia; F03.91 Unspecified dementia, unspecified severity, with behavioral disturbance; Y92.122 Bedroom in nursing home as the place of occurrence of the external cause; W06.XXXA Fall from bed, initial encounter; F20.0 Paranoid schizophrenia

== ENCOUNTER 2023-06-02 13:13 | Inpatient (IN) ==
[2023-06-02] MEDS ORDERED: PIPERACILLIN/TAZOBACTAM 4.5 GM/120 ML BAG IV ONE (13:40)
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
--- NOTE | 2023-06-02 13:58 | XRay Report ---
SINGLE VIEW CHEST CLINICAL HISTORY: Choking. Hypoxia. FINDINGS: An AP, portable, upright chest radiograph is compared to study dated 12/13/2021. Correlation is made with chest CT dated 07/13/2021. The heart is enlarged noting atherosclerotic calcification of the thoracic aorta. There is pulmonary vascular congestion. There are bilateral airspace opacities, greatest in the mid to lower lungs. No large pleural effusion or pneumothorax is seen. The skeletal s tructures are osteopenic. The bony thorax is grossly intact. IMPRESSION: 1. Cardiomegaly with evidence of congestive failure. 2. Multifocal bilateral airspace consolidation could represent pulmonary edema and/or multifocal pneu monia. Clinical correlation will be required and radiographic follow-up to resolution is recommended. ACT 112: Negative or not required by law. Electronically signed by: Emanuel Sullivan M.D. 06/02/2023 1:56 PM
[2023-06-02 14:01] LABS: Hematocrit (blood only) 34.6 % (42.0-52.0); Hemoglobin 11.4 g/dl (14.0-18.0); Mean Corpuscular Hemoglobin 32.7 pg (25.0-34.0); Mean Corpuscular Hgb Conc 32.9 g/dL (32.0-36.0); Mean Corpuscular Volume 99.1 fL (80.0-100.0); Mean Platelet Volume 11.7 fL (9.4-12.4); Nucleated RBC # (auto) 0.06 K/uL (0-0.12); Nucleated RBC % (auto) 0.7 %; Platelet Count 96 K/uL (130-400); RDW Coefficient of Variation 16.9 % (11.5-14.5); RDW Standard Deviation 61.1 fL (36.4-46.3); Red Blood Count 3.49 M/uL (4.70-6.10); White Blood Count 8.65 K/ul (4.8-10.8)
[2023-06-02 14:11] LABS: Alanine Aminotransferase 8 U/L (7-52); Albumin Globulin Ratio 0.8 (0.9-2); Alkaline Phosphatase 83 U/L (34-104); Anion Gap 12 (3-11); Aspartate Aminotransferase 12 U/L (13-39); BUN Creatinine Ratio 29.3 (10-20); Bilirubin,Total 0.3 mg/dl (0.2-1.0); Blood Urea Nitrogen 44 mg/dl (6-23); Calcium 8.8 mg/dl (8.6-10.3); Carbon Dioxide 32 mmol/L (21-32); Chloride 106 mmol/L (98-107); Est GFR (African American) 53.9 ml/min; Est GFR (Non-African American) 46.5 ml/min; Globulin 3.8 gm/dl (2.5-4.0); Glucose 95 mg/dl (70-99(Fasting)); Magnesium 2.2 mg/dl (1.7-2.4); Potassium 4.1 mmol/L (3.5-5.1); Sodium 150 mmol/L (136-145); Total Protein 6.8 gm/dl (6.0-8.3)
[2023-06-02 14:15] LABS: Basophils # (auto) 0.02 K/uL (0-0.2); Basophils % (auto) 0.2 %; Immature Granulocytes # (auto) 0.12 K/uL (0.01-0.20); Immature Granulocytes % (auto) 1.4 %; Lymphocytes # (auto) 0.62 K/uL (1.2-3.4); Lymphocytes % (auto) 7.2 %; Monocytes # (auto) 0.41 K/uL (0.11-0.59); Monocytes % (auto) 4.7 %; Neutrophils # (auto) 7.48 K/uL (1.40-6.50); Neutrophils % (auto) 86.5 %
[2023-06-02 14:18] LABS: Troponin I High Sensitivity 17.4 pg/ml (0-20)
[2023-06-02] MEDS ORDERED: SCOPOLAMINE 1 MG TDSY TD ONE (14:24)
[2023-06-02 14:33] LABS: Appearance Urine Cloudy (Clear); Bilirubin Urine Negative (Negative); Blood Urine 2+ (Negative); Color Urine Dark Yellow; Epithelial Cell Urine Auto >30 /lpf (0-5); Glucose Urine UA Negative (Negative); Ketones Urine Trace (Negative); Leukocyte Esterase Urine 2+ (Negative); Nitrite Urine Negative (Negative); Protein Urine 1+ (Negative); Specific Gravity Urine 1.017 (1.000-1.030); Urobilinogen Urine Negative (Negative)
[2023-06-02 14:33] LABS: Partial Thromboplastin Time 29.2 Seconds (21.0-31.0); Prothrombin Time 11.3 Seconds (9.0-12.0)
[2023-06-02] MEDS ORDERED: SODIUM CHLORIDE 0.9% 500 ML IV ONE (14:34)
[2023-06-02 14:49] LABS: Mucus Urine Present (None Prsent)
[2023-06-02 14:50] LABS: Bacteria Urine Automated 1+ (Negative); Cast Urine Automated >30 /lpf (0-5)
[2023-06-02] MEDS ORDERED: LACTATED RINGER'S 1,000 ML IV ONE (15:08)
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
[2023-06-02 15:40] LABS: Base Excess ABG 5.6 mEq/L (-9-1.8); HCO3 ABG 33 mmol/L (19-24); Oxygen Saturation ABG 77.1 % (90-95); PCO2 ABG 62 mmHg (35-46); PO2 ABG 49 mmHg (80-95); pH ABG 7.34 (7.35-7.45)
[2023-06-02 15:54] LABS: Allen Test POS (Pos)
[2023-06-02] MEDS ORDERED: CHECK SCOPOLAMINE PATCH PLACEMENT SCH (16:00)
[2023-06-02 16:20] LABS: Adenovirus PCR Not Detected (NotDetected); Bordetella parapertussis PCR Not Detected (NotDetected); Bordetella pertussis PCR Not Detected (NotDetected); Chlamydia pneumoniae PCR Not Detected (NotDetected); Coronavirus 229E PCR Not Detected (NotDetected); Coronavirus CoV-2 (COVID19)PCR Not Detected (NotDetected); Coronavirus HKU1 PCR Not Detected (NotDetected); Coronavirus NL63 PCR Not Detected (NotDetected); Coronavirus OC43PCR Not Detected (NotDetected); Human Metapneumovirus PCR Not Detected (NotDetected); Influenza A PCR Not Detected (NotDetected); Influenza B PCR Not Detected (NotDetected); Mycoplasma pneumoniae PCR Not Detected (NotDetected); Parainfluenza Virus 1 PCR Not Detected (NotDetected); Parainfluenza Virus 2 PCR Not Detected (NotDetected); Parainfluenza Virus 3 PCR Not Detected (NotDetected); Parainfluenza Virus 4 PCR Not Detected (NotDetected); Respiratory Syncytial VirusPCR Not Detected (NotDetected); Rhinovirus/Enterovirus PCR Not Detected (NotDetected)
[2023-06-02] MEDS ORDERED: MoRPHine SULFATE 2 MG/ML CARP IV PRN (17:17)
[2023-06-02] MEDS ORDERED: ONDANSETRON INJ 2 MG/ML 2 ML VIAL IV PRN (17:17)
[2023-06-02] MEDS ORDERED: LORazepam 0.5 MG TAB PO PRN (17:17)
[2023-06-02] MEDS ORDERED: LORazepam 2 MG/1 ML VIAL IV PRN (17:17)
[2023-06-02] MEDS ORDERED: MoRPHine SULFATE 10 MG/0.5 ML UDP PO PRN (17:17)
[2023-06-02] MEDS ORDERED: ATROPINE SULFATE 1% OP SOLN 5 ML BTL SL PRN (17:17)
[2023-06-02] MEDS ORDERED: HYOSCYAMINE SULFATE 0.125 MG TAB SL PRN (17:17)
[2023-06-02] MEDS ORDERED: ONDANSETRON 4 MG OD TAB SL PRN (17:17)
[2023-06-02] MEDS ORDERED: LORazepam 2 MG/1 ML VIAL IV SCH (17:30)
[2023-06-02] MEDS ORDERED: PIPERACILLIN/TAZOBACTAM 4.5 GM in DEXTROSE 5% 100 ML IV SCH (19:30)
[2023-06-02] MEDS: MoRPHine SULFATE 2 MG/ML CARP IV PRN (22:31)
[2023-06-02] MEDS: LORazepam 2 MG/1 ML VIAL IV PRN (22:32)
[2023-06-03] MEDS: MoRPHine SULFATE 2 MG/ML CARP IV PRN ×7 (00:45→11:06)
[2023-06-03] MEDS: LORazepam 2 MG/1 ML VIAL IV PRN ×4 (00:45→05:07)
[2023-06-03] MEDS: GLYCOPYRROLATE 0.2 MG/ML VIAL IV PRN ×3 (02:08→12:06)
--- NOTE | 2023-06-03 11:42 | Hospitalist Progress Note ---
Date of Service June 03, 2023 Assessment & Plan (1) Comfort measures only status: Plan: Pt is a 72 yo male with extensive PMH who presented due to an aspiration event. 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 with DNR - After discussion with family upon admission, decision was made to proceed with full comfort measures - Goal for comfort measures only; no IV fluids, antibiotics may be used if for comfort - continue morphine PRN for shortness of breath, lorazepam PRN for anxiety, glycopyrrolate/hyoscyamine PRN for secretions Code: DNR, PULPER OPERATOR DVT ppx: none Dispo: med/surg (2) Aspiration pneumonia: (3) Dementia with behavioral disturbance: (4) GERD (gastroesophageal reflux disease): (5) BPH (benign prostatic hyperplasia): (6) TBI (traumatic brain injury): (7) Paranoid schizophrenia: (8) Acute respiratory failure with hypoxia: (9) Acute hypernatremia: Admission and Anticipated Discharge Date Admission Date: June 02, 2023 Supervising Physician Co-Signing Physician Notes I personally examined the patient and verified all chambers points of history and exam, discussed case, and agree with decision making with Dr Koenig no HPI review of systems obtainable. Appears to have agonal respirations whenever I see him. Fortunately appears to be in no discomfort. Vitals noted, in general He is in bed gaunt appearing and appears to be in agonal respirations, but fortunately does not appear to be in any pain or distress. Severe dementia, aspiration, comfort measures onlyfamily's decision appears to be quite rational and I agree with their decision making and planfortunately the patient now appears to be comfortable, and I suspect will be passing imminently given his agonal respirations Subjective Pt appears comfortable. Non responsive. Review of Systems Review of Systems: Unobtainable due to cognitive status Physical Exam Physical Exam: Constitutional: ill appearing, no acute distress HEENT: normocephalic CV: regular rhythm, tachycardic, no murmur Respiratory: Rhonchus sounds throughout. Agonal respirations noted. Skin: warm, dry Neuro: non responsive Results & Data Results & Data Vital Signs (Past 12 Hours) Vital Signs Pulse Resp Pulse Ox O2 Del Method O2 Flow Rate 06/03/23 07:14 Nasal Cannula 3 06/03/23 05:05 100 H 44 H 82 L Nasal Cannula 2 06/03/23 03:42 94 H 36 H 83 L Nasal Cannula 2 06/03/23 03:36 117 H 44 H 80 L Nasal Cannula 2 Resident Activity Tracking Resident Involvement: Resident Care Provided Care Provided: Adult Hospital Medicine (2) Aspiration pneumonia Aspiration pneumonia type: unspecified Laterality: unspecified laterality Lung location: unspecified part of lung Qualified Code(s): J69.0 - Pneumonitis due to inhalation of food and vomit
--- NOTE | 2023-06-03 14:12 | Death Pronouncement Note ---
Date of Service June 03, 2023 Pronouncement Note Admission Date Admission Date: June 02, 2023 Date and Time of Date of : 06/03/23 Time of : 13:55 Contributing Factors (1) Comfort measures only status: (2) Aspiration pneumonia: (3) Dementia with behavioral disturbance: (4) GERD (gastroesophageal reflux disease): (5) BPH (benign prostatic hyperplasia): (6) TBI (traumatic brain injury): (7) Paranoid schizophrenia: (8) Acute respiratory failure with hypoxia: (9) Acute hypernatremia: Summary Additional details: I was called to pronounce the of Shayne Chen :1950 by the nurse on June 03, 2023 at 1:45 PM. Upon entering the room, the patient was found to be in a terminal state. Patient was unresponsive to verbal and tactile stimuli. Patient unresponsive to corneal and pupillary reflexes. On cardiopulmonary exam, no carotid or radial pulses found and pt without spontaneous heart tones or respirations. Time of was pronounced by me on June 03, 2023 at 1:55 PM. Attending physician was notified. Next of kin was called without an answer. Further attempts at contact will be made by myself and/or nursing staff. Additional Data Attending physician: Frederic Ferguson DO Resident Activity Tracking Resident Involvement: Resident Care Provided Care Provided: Adult Hospital Medicine
--- NOTE | 2023-06-03 14:19 | Discharge Summary ---
Date of Service June 03, 2023 Admission HPI Per Admitting Provider Shayne Chen is a 72 year old male who presents to the ER from [facility] dementia unit due to aspiration that occurred this morning. Unable to get any history from the patient. On discussion with [facility] he was transferred to the ER after aspirating on his breakfast this morning - they did not feel they could meet his goal of comfort at [facility] as unable to get morphine in a timely manner therefore was sent to the ER. Patient has a POLST form for comfort measures only with limited use of antibiotics for goal of comfort. No IV fluids or artificial nutrition. Admission Exam Per Admitting Provider Constitutional: + acute distress (respiratory) and + ill appearing; + not well nourished Eyes: unable to assess as not following commands ENMT: Mouth: + dry oral mucous membranes Respiratory: + respiratory distress, + labored breathing, + retractions, + uses accessory muscles, + tachypneic and + paradoxical chest wall movement; + abnormal respiratory effort Auscultation: + rhonchi; no wheezes Cardiovascular: Rate/Rhythm: regular rhythm and + tachycardic Extremities: + abnormal capillary refill (7s in peripheries, <2s centrally) Gastrointestinal (Abdomen): Inspection/Auscultation: abdomen not distended Percussion/Palpation: abdomen soft; abdomen nontender Neurologic: awake and + confused (grabbing at staff) Psychiatric: Orientation: alert; + not oriented x 3 Apperance: + disheveled Eye Contact: + poor eye contact Motor Behavior: + psychomotor agitation Principal Diagnosis aspiration pneumonitis Discharge Exam Constitutional: terminal state HEENT: normocephalic, corneal and pupillary reflexes absent CV: No spontaneous heart tones heard Respiratory: No spontaneous breath sounds noted Neuro: unresponsive Discharge Data Allergies Allergy/AdvReac Type Severity Reaction Status Date / Time No Known Allergies Allergy Verified 06/02/23 14:55 Consultations 06/02/23 14:54 ED Decision to Admit Stat 06/02/23 15:03 Consult Palliative Care Routine Hospital Course (1) Comfort measures only status: Pt is a 72 yo male with extensive PMH who presented due to an aspiration event. 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 He was subsequently pronounced Code: DNR, FIBERGLASS GRINDER DVT ppx: none Dispo: (2) Aspiration pneumonia: (3) Dementia with behavioral disturbance: (4) GERD (gastroesophageal reflux disease): (5) BPH (benign prostatic hyperplasia): (6) TBI (traumatic brain injury): (7) Paranoid schizophrenia: (8) Acute respiratory failure with hypoxia: (9) Acute hypernatremia: Total Time Total Time Spent Total Time Spent (In Minutes): as per attenting attestation Discharge Plan Discharge Items Patient Disposition: Other Date/Time: 06/03/23 13:55 Resident Activity Tracking Resident Involvement: Resident Care Provided Care Provided: Adult Hospital Medicine
--- NOTE | 2023-06-03 19:00 | Billing Data ---
Date of Service June 03, 2023 Coding Level of Care Code 39357 IN/OBS DISCH 30 MIN/LESS
--- NOTE | 2023-06-05 05:37 | Electrocardiogram Report ---
Test Reason : Blood Pressure : / mmHG Vent. Rate : 101 BPM Atrial Rate : 101 BPM P-R Int : 154 ms QRS Dur : 148 ms QT Int : 386 ms P-R-T Axes : 065 -37 -11 degrees QTc Int : 500 ms Sinus tachycardia with occasional Premature atrial complexes Possible Left atrial enlargement Left axis deviation Right bundle branch block Inferior infarct (cited on or before 12-JUL-2021) Abnormal ECG When compared with ECG of 12-DEC-2021 09:05, Premature atrial complexes are now Present Premature ventricular complexes are no longer Present Confirmed by Amarjit Zee ([id number]) on 06/05/2023 5:36:46 AM Referred By: REFERRED SELF Confirmed By:Amarjit Zee
== END 2023-06-03 16:14 | disposition expired | DRG 177 ==
LOC: ED 13:13 → 3E 14:56 → SUATTDRO 14:56 → 3E 15:54